=== PATIENT | female | born 1940 | race Caucasian/White ===

== ENCOUNTER 2017-07-12 20:06 | Inpatient (IN) | payer OTHER ==
[~2017-07-12] VITALS: Ht 162.6 cm; Wt 95.3 kg
--- NOTE | 2017-07-12 21:41 | ED GI/GU/ABDOMINAL COMPLAINT ---
History of Present Illness General Chief Complaint: General Adult Stated Complaint: CYST ON COLON Source: patient Exam Limitations: no limitations Vital Signs & Intake/Output Vital Signs & Intake/Output Vital Signs Date Time Temp Pulse Resp B/P B/P Pulse O2 O2 Flow FiO2 Mean Ox Delivery Rate 07/12 2245 97.7 78 18 121/67 97 Room Air 07/129 97.1 77 18 115/68 95 Room Air ED Intake and Output 07/13 0000 07/12 1200 Intake Total 0 Output Total Balance 0 Intake, Oral 0 Patient 210 lb Weight Weight Reported by Patient Measurement Method Allergies Coded Allergies: erythromycin base (GI UPSET 07/12/17) Triage Note: PT SENT TO ED BY PCP S/P SIGMOID ABCESS BEING FOUND ON CT. PT HAD PAIN IN LOW ABD FOR 2 WEEKS, "SAW PCP TWICE FOR IT" +NAUSEA/DIARRHEA. DENIES VOMITTING. AFEBRILE IN TRIAGE. DR JACOBSON CALLED AND ANTICIPATES SURGICAL/INTERVENTIONAL RADIOLOGY CONSULT. [facility] OF [facility]ERTIC Triage Nurses Notes Reviewed? yes ? N Is pt currently ? No Duration: week(s): (2), changing over time, continues in ED, intermittent Timing: remote history Location: generalized abdomen Prior Abdominal Problems: similar symptoms HPI: 77-year-old female with type II diabetes and hypertension presented to the emergency department reporting 2 weeks of abdominal pain. She had presented to her primary care provider twice over the last 2 weeks and at one point she was diagnosed with UTI and given Macrobid. She had then returned to the office and was then prescribed Cipro. Patient has history of diverticulitis. She has had diarrhea and abdominal pain, with minimal nausea and without vomiting. She was told this evening by her primary care provider via telephone that she needed to come to the emergency department because of acute diverticulitis. She has a history of uterine cancer status post hysterectomy. (Odessa Beltrán) Past History Travel History Traveled to [place] past 21 day No Medical History Any Pertinent Medical History? see below for history Neurological: NONE EENT: NONE Cardiovascular: hypertension, hyperlipidemia Respiratory: COPD Gastrointestinal: diverticulitis Endocrine: diabetes, hypothyroidism Cancer(s): UTERINE CANCER Surgical History Surgical History: hysterectomy Psychosocial History What is your primary language Welsh Tobacco Use: Quit >30 days ago ETOH Use: occasional use Illicit Drug Use: denies illicit drug use Family History Hx Contributory? No ([place] Beltrán) Review of Systems Review of Systems Constitutional: Reports: no symptoms. EENTM: Reports: no symptoms. Respiratory: Reports: no symptoms. Cardiovascular: Reports: no symptoms. GI: Reports: see HPI. Genitourinary: Reports: no symptoms. Musculoskeletal: Reports: no symptoms. Skin: Reports: no symptoms. Neurological/Psychological: Reports: no symptoms. Hematologic/Endocrine: Reports: no symptoms. Immunologic/Allergic: Reports: no symptoms. All Other Systems: Reviewed and Negative ([place] Beltrán) Physical Exam Physical Exam General Appearance: well developed/nourished, no apparent distress, alert, awake , comfortable Head: atraumatic, normal appearance Eyes: Bilateral: normal appearance. Ears, Nose, Throat, Mouth: hearing grossly normal Neck: normal inspection, full range of motion Respiratory: normal breath sounds, chest non-tender, no respiratory distress Cardiovascular: regular rate/rhythm Gastrointestinal: normal bowel sounds, soft, distention, tenderness particularly in generalized lower abdomen Back: normal inspection, normal range of motion Extremities: normal range of motion Neurologic/Psych: no motor/sensory deficits, awake, alert, oriented x 3, normal mood/affect Skin: intact, normal color, warm/dry Core Measures ACS in differential dx? No Sepsis Present: No Sepsis Focused Exam Completed? No ([place] Beltrán) Progress Differential Diagnosis: diverticulitis Plan of Care: Orders Procedure Date/time Status PARTIAL THROMBOPLASTIN TIME 07/13 2147 Complete PROTHROMBIN TIME 07/13 2147 Complete LIPASE 07/13 2147 Complete LACTIC ACID 07/13 2147 Complete COMPREHENSIVE METABOLIC PANEL 07/13 2147 Complete CBC WITHOUT DIFFERENTIAL 07/13 2147 Complete AMYLASE 07/13 2147 Complete Laboratory Tests 07/13/17 0048: Lactic Acid Cancelled 07/12/17 2205: Anion Gap 11, Estimated GFR 54 L, BUN/Creatinine Ratio 16.0, Glucose 143 H, Lactic Acid 0.9, Calcium 8.8, Total Bilirubin 0.3, AST 21, ALT 46, Alkaline Phosphatase 70, Total Protein 6.1 L, Albumin 3.3 L, Globulin 2.8, Albumin/ Globulin Ratio 1.2, Amylase 55, Lipase 305 H, PT 12.4, INR 1.14, APTT 26, CBC w Diff NO MAN DIFF REQ, RBC 3.86 L, MCV 87.8, MCH 28.9, MCHC 32.9 L, RDW 13.8, MPV 8.3, Gran % 74.9, Lymphocytes % 17.0 L, Monocytes % 5.9, Eosinophils % 1.7, Basophils % 0.5, Absolute Granulocytes 8.9 H, Absolute Lymphocytes 2.0, Absolute Monocytes 0.7 H, Absolute Eosinophils 0.2, Absolute Basophils 0.1 77-year-old female presented to the emergency department stating that her primary care provider had ordered a CT of her abdomen and received the results today at 5 PM and told patient to come to the emergency department because of acute diverticulitis. CT of abdomen revealed 5.5 cm air-containing mass with pericolonic inflammation and acute diverticulitis complicated by intramural abscess formation. Also on the CT revealed a left lower lobe lung nodule and suggested a nonurgent CT scan of patient's chest. Patient was started on Unasyn 3 g IV and blood work was ordered. Will await results of white blood cell count and then will contact surgical team/medicine team. Discussed plan with Dr. De Los Santos. Called surgical transportation engineer spoke with Dr. Mccord who states to let the surgical PA know and also contact medicine team. Contacted Christina with surgical PA team and discussed, she is aware and will consult pt. Awaiting call from Dr. Bradshaw to admit to medical team. Handing off patient to Dr. De Los Santos. 07-12-17 9:37 pm - Patient resting comfortably. She is requesting something for nausea at this time. Ordered IV zofran. She denies any pain at this time unless her abdomen is pressed.She states mainly she just feels bloated. Diagnostic Imaging: Viewed by Me: CT Scan. Discussed w/RAD: CT Scan. Radiology Impression: PATIENT: ADAM STERLING PRESENT AGE: 77 PATIENT ACCOUNT NO: [id number] : 41 LOCATION: [facility] ORDERING PHYSICIAN: Baldemar Jacobson DO SERVICE DATE: 07/11/17- EXAM TYPE: CAT - CT ABD & PELVIS W ORAL & IV CO EXAMINATION: CT ABDOMEN AND PELVIS WITH CONTRAST CLINICAL INFORMATION: Abdominal pain. COMPARISON: None TECHNIQUE: Multidetector volumetric imaging was performed of the abdomen and pelvis following IV administration of 90 mL of Optiray 320 intravenous contrast. Sagittal and coronal reformatted images were obtained on the technologist's workstation. DLP: 649.0 mGy-cm FINDINGS: LUNG BASES: There is a 1 cm maximum dimension solid-appearing pleural-based nodule identified, only partially included within the [id number] along the posterior, medial aspect of the left lung base (image #[id number] series 3; see the ching images). A nonemergent follow-up noncontrast CT scan of the chest is recommended for further full detail evaluation. LIVER, GALLBLADDER, AND BILIARY TREE: The liver is normal in size, shape, and attenuation. No focal hepatic lesion or biliary ductal dilatation is present. The gallbladder is unremarkable with no evidence of radiopaque gallstones, gallbladder wall thickening, or obvious pericholecystic inflammatory changes. PANCREAS: Unremarkable. SPLEEN: Unremarkable. ADRENAL GLANDS: The left adrenal gland is minimally thickened. There is no adrenal mass present on either side. KIDNEYS AND URETERS: The right kidney is slightly malrotated. Otherwise both kidneys show symmetric perfusion and appear unremarkable. There is no evidence of any calculi or hydronephrosis or inflammatory changes noted on either side. BLADDER: Suboptimally distended, grossly appear unremarkable. GASTROINTESTINAL TRACT: There is a 5.4 x 4.4 cm maximum dimension air containing mass identified within the proximal sigmoid colon at the level of the midpelvis at midline and slightly extending to the left of the midline surrounded by significant pericolonic inflammatory changes and underlying colonic diverticulosis, most consistent with acute diverticulitis complicated by intramural abscess formation. There is no evidence of any extra colonic fluid collection present. There is no fistula formation present with the surrounding organs. There is no evidence of any perforation noted. Note is however made of significant inflammatory changes seen extending anteriorly to the urinary bladder and along the expected location of the uterus. No definite uterus is visualized. The patient may have hysterectomy. Please correlate clinically with surgical history. ABDOMINAL WALL: No significant hernia is appreciated. LYMPH NODES: No pathologically enlarged retroperitoneal, pelvic and/or inguinal, groin lymphadenopathy present. Specifically, no definite evidence of any sigmoid mesocolonic lymphadenopathy identified. VASCULAR: Diffuse mild atherosclerotic disease is noted within the aorta and its branches without aneurysm formation. PELVIC VISCERA: There is no free fluid and/or free air present. There is no pelvic mass present. OSSEOUS STRUCTURES: Postsurgical changes of posterior spinal fusion is noted at L5-S1 spinous process level. The hardware is intact. Multilevel degenerative spondylosis related changes are noted throughout the entire lumbosacral spine with significant facet degenerative arthritic changes at lower lumbar spine. No superimposed suspicious lytic or sclerotic abnormalities. IMPRESSION: 1. 1 cm noncalcified solid-appearing lung nodule is noted at left lower lobe of the lung, incompletely included within the field-of- view. A follow-up nonemergent CT scan of the chest is recommended for further full detail evaluation. 2. 5.4 x 4.4 cm maximum dimension air containing mass is identified within the proximal sigmoid colon at the level of the midpelvis surrounded by significant pericolonic inflammatory changes and underlying colonic diverticulosis, most consistent with acute diverticulitis complicated by intramural abscess formation. There is no evidence of any bowel obstruction, perforation or fistula formation or extracolonic abscess formation identified. Follow-up colonoscopy/direct visualization following resolution of symptoms is recommended to exclude any possibility of underlying colonic neoplasm. Note is however made of absence of any sigmoid mesenteric lymphadenopathy. 3. Minimally thickened left adrenal gland and slightly malrotated right kidney, diffuse atherosclerotic disease of the aorta and its branches and multilevel degenerative spondylosis of the lumbosacral spine and postsurgical changes of posterior spinal fusion between the spinous processes of L5 and S1. This critical result was discussed with Dr. Baldemar Jacobson M.D. at 5:03 p.m. on 07/12 and it was ascertained that the content and urgency of the report was understood at the time of direct communication. DICTATED BY: Saúl Ospina MD DATE/TIME DICTATED:07/12/171642 WOOL CARDER:PETEY DATE/TIME TRANSCRIBED:07/12/171642 CONFIDENTIAL, DO NOT COPY WITHOUT APPROPRIATE AUTHORIZATION. <Electronically signed in Other Vendor System> SIGNED BY: Saúl Ospina MD 07/12/17 1728 Initial ED EKG: none Hand-Off Endorsed To: Peyman De Los Santos MD Endorsed Time: 2327 Pending: consult (from medicine to admit) ([place] Beltrán) Departure Departure Condition: Stable Clinical Impression Primary Impression: Acute diverticulitis Referrals: Baldemar Jacobson DO (PCP/Family) Departure Forms: Customer Survey General Discharge Information ([place] Beltrán) Departure Disposition: STILL A PATIENT PA/EGG BREAKER Co-Sign Statement Statement: ED Attending supervision documentation- [x] I saw and evaluated the patient. I have also reviewed all the pertinent lab results and diagnostic results. I agree with the findings and the plan of care as documented in the PA's/EGG BREAKER's documentation. 07/13/17, 0:55...pt comfortable in ED... ct scan noted... pt to be admitted for iv abx. ... appreciate surgery input. [] I have reviewed the ED Record and agree with the PA's/EGG BREAKER's documentation. [] Additions or exceptions (if any) to the PAs/EGG BREAKER's note and plan are summarized below: [] (Magali CORDON,Peyman Jimenez)
[2017-07-12 22:14] LABS: ABSOLUTE BASOPHIL COUNT 0.1 /CUMM (0.0-0.2); ABSOLUTE EOSINOPHIL COUNT 0.2 /CUMM (0.0-0.7); ABSOLUTE GRANULOCYTE CT 8.9 /CUMM (1.4-6.5); ABSOLUTE MONOCYTE COUNT 0.7 /CUMM (0.10-0.60); BASOPHIL % 0.5 % (0.0-2.0); EOSINOPHIL % 1.7 % (0-5); GRANULOCYTE % 74.9 % (42.2-75.2); HEMATOCRIT 33.9 % (37-47); MEAN CORPUSCULAR HGB 28.9 PG (27.0-31.0); MEAN CORPUSCULAR HGB CONC 32.9 G/DL (33.0-37.0); MEAN CORPUSCULAR VOLUME 87.8 FL (81.0-99.0); MEAN PLATELET VOLUME 8.3 FL (7.4-10.4); PLATELET COUNT 316 /CUMM (130-400); RBC DISTRIBUTION WIDTH 13.8 % (11.5-14.5); RED BLOOD CELL CT 3.86 /CUMM (4.20-5.40); WHITE BLOOD CELL COUNT 11.9 /CUMM (4.8-10.8)
[2017-07-12 22:35] LABS: PT 12.4 SEC (9.4-12.5); PTT 26 SEC (25-37)
--- NOTE | 2017-07-13 00:03 | Cons- General Surgery ---
Ying Garcia 07/12/17 2358: General Information and HPI Consulting Request Date of Consult: 07/13/17 Requested By: Lexi Smart Reason for Consult: Diverticulitis Source of Information: patient Exam Limitations: no limitations History of Present Illness: Pt is a 77 year old female with a long history of several years of diverticulitis. She is managed by her PCP Dr Jacobson - does not have a GI doctor. Has been hospitalized in the past at [facility] but she can't remember the last time it was years ago. She has no records of hospitalization at this hospital. She began having symptoms about two weeks ago of abdominal pain, bloating and diarrhea. She said that she felt it was IBS. Denies any nausea or chills. She states that is was also burning with urination and her MD put her on a two day course of antibiotics which were discontinued after her urine culture came back negative. 3 days ago she saw her PCP again for continued diarrhea at which time he sent her for stool cultures. They were negative for any specific organism but did show increased white counts per the patient report at which point she was begun on cipro. Her PCP sent her to [facility] for a CT yesterday which was reported to him today as inflammation of the sigmoid with an intramural abscess which is when he called her and asked her to come to the ED for admission for IV antibiotics. She hasn't had any progression of her symptoms and remains afebrile without chills. At the time of exam she is comfortable, in very little pain, denies any nausea. Had diarrhea today, no solid BM, tolerating food. Allergies/Medications Allergies: Coded Allergies: erythromycin base (GI UPSET 07/12/17) Current Medications: Current Medications Sig/Fidelina Start time Last Medication Dose Route Stop Time Status Admin Ampicillin Sodium/ 0 .STK-MED ONE 07/13 2207 DC Sulbactam Sodium .ROUTE Ampicillin Sodium/ 3,000 MG ONCE ONE 07/12 2199 DC 07/12 Sulbactam Sodium IV 07/12 Sodium Chloride 100 ML Ondansetron HCl 0 .STK-MED ONE 07/13 2219 DC .ROUTE Ondansetron HCl 4 MG ONCE ONE 07/12 2214 DC 07/12 IV 07/12 Past History Medical History Neurological: NONE EENT: NONE Cardiovascular: hypertension, hyperlipidemia Respiratory: COPD Gastrointestinal: diverticulitis Endocrine: diabetes, hypothyroidism Cancer(s): UTERINE CANCER Surgical History Pertinent Surgical History: appendectomy, hysterectomy, right knee surgery Psychosocial History Where Do You Live? Home Who Do You Live With? self Smoking Status: Former Smoker (quit 46 years ago) ETOH Use: occasional use Illicit Drug Use: denies illicit drug use Functional Ability ADLs Independent: dressing, eating, toileting, bathing. Ambulation: cane Review of Systems Review of Systems: See HPI - diarrhea, bloating, abdominal pain for two weeks, Also complains of left knee pain and some back pain which is chronic Exam & Diagnostic Data Vital Signs and I&O Vital Signs Date Time Temp Pulse Resp B/P B/P Pulse O2 O2 Flow FiO2 Mean Ox Delivery Rate 07/12 2245 97.7 78 18 121/67 97 Room Air 07/129 97.1 77 18 115/68 95 Room Air Intake & Output 07/13 0800 07/13 0000 07/12 1600 07/12 0800 07/12 0000 07/11 1600 Intake Total 0 Output Total Balance 0 Intake, Oral 0 Patient 210 lb Weight Weight Reported by Patient Measurement Method Physical Exam: afebrile, vss General: alert and oriented times three Chest: clear anteriorly bilaterally, RRR Abd: soft, nondistended, good bs, tender only to very deep palpation and the lower quadrants L>R, otherwise nontender Ext: warm, no edema, no calf tenderness Assessment/Plan Assessment/Plan 77yo female with history of diverticulitis who has not had a flare up in years presents with a two week history of symptoms and a CT positive for proximal sigmoid diverticulitis with an intramural abscess Discussed with Dr Jacobo Patient should not require surgical intervention as it is an intramural abscess Recommend antibiotics and GI consult for follow up once resolved Will follow Consult Acknowledgment - Thank you for your consult request. Keith Jacobo DO 07/14/17 5897: General Information and HPI Allergies/Medications Home Med List: Fluticasone/Salmeterol (Advair 250-50 Diskus) 250 MCG-50 MCG/DOSE BLST.W.DEV 1 PUF INH BID ASTHMA (Reported) Levothyroxine Sodium 112 MCG TABLET 1 TAB PO DAILY HYPOTHYROIDISM (Reported) Lisinopril/Hydrochlorothiazide (Lisinopril-Hctz 20-25 MG Tab) 20 MG-25 MG TABLET 1 TAB PO DAILY HTN (Reported) Metformin HCl (Metformin HCl ER) 500 MG TAB.ER.24H 1 TAB PO BID DIABETES ( Reported) Simvastatin (Simvastatin*) 40 MG TABLET 1 TAB PO QPM HYPERLIPIDEMIA (Reported ) Sitagliptin Phosphate (Januvia) 100 MG TABLET 1 TAB PO DAILY DIABETES ( Reported) Assessment/Plan Consult Acknowledgment - Thank you for your consult request. Attending MD Review Statement Attending Statement Attending MD Statement: examined this patient, discuss w/resident/PA/SIDE PANEL HANGER, agreed w/resident/PA/SIDE PANEL HANGER, reviewed EMR data (avail), reviewed images Attending Assessment/Plan: Patient seen and examined, agree with above. Abdominal pain for weeks. CT scan done as outpatient showed sigmoid diverticulitis with an intramural abscess. AVSS. Abd-soft, mild left sided discomfort. Labs ok. No acute surgical intervention at this time. No need for IR drainage of the abscess. IV Abx. C- scope as per GI. Patient has had prior episodes of diverticulitis, last one years ago and may need an eventual resection.
--- NOTE | 2017-07-13 00:19 | History & Physical ---
[facility] 07/13/17 0017: General Information and HPI MD Statement: I have seen and personally examined DAAM STERLING and documented this H&P. The patient is a 77 year old F who presented with a patient stated chief complaint of [AB PAIN/FEVER]. Source of Information: patient, old records Exam Limitations: no limitations History of Present Illness: Ms. Sterling is a 77yo F w/ PMH of Hypertension, hyperlipidemia, COPD/asthma, VIC on nocturnal CPAP, diabetes on metformin/Januvia, hypothyroidism, spinal stenosis, s/p hysterectomy 2/2 uterine CA, s/p sppendectomy, s/p right knee surgery, had a long history of diverticulitis, however without any ongoing GI specialist, but only her PCP Dr. Jacobson, without any [facility] hospitalization in the past, presented to ab pain/bloating/diarrhea x 2 weeks, however denied any fever/chills/N/V. Patient also endorsed urinary burning recently that she had 2 days of antibiotics by PCP but discontinued after urina Cx showed negative. Patient stool culture 3 days ago was negative but showed increased WBC, thus PCP advised her to a CT scan at [facility], and was found to have "acute diverticulitis complicated by intramural abscess formation." PCP then sent the patient to ER for further evaluation. During our clinical interaction, patient denied recent travel/sick contacts, fever/lightheadedness/diaphoresis/night sweat/weight change/cough/SOB/Chest Pain /Palpitation/Abdominal pain/bowel movement or urinary abnormality, or other skin /musculoskeletal/neurological/mood disorders, or dietary/appetite change. -Smoking: quitted >40yrs ago -Alcohol: occassional -Rec Drugs: denied Allergies/Medications Allergies: Coded Allergies: erythromycin base (GI UPSET 07/12/17) Home Med list Fluticasone/Salmeterol (Advair 250-50 Diskus) 250 MCG-50 MCG/DOSE BLST.W.DEV 1 PUF INH BID ASTHMA (Reported) Levothyroxine Sodium 112 MCG TABLET 1 TAB PO DAILY HYPOTHYROIDISM (Reported) Lisinopril/Hydrochlorothiazide (Lisinopril-Hctz 20-25 MG Tab) 20 MG-25 MG TABLET 1 TAB PO DAILY HTN (Reported) Metformin HCl (Metformin HCl ER) 500 MG TAB.ER.24H 1 TAB PO BID DIABETES ( Reported) Simvastatin (Simvastatin*) 40 MG TABLET 1 TAB PO QPM HYPERLIPIDEMIA (Reported ) Sitagliptin Phosphate (Januvia) 100 MG TABLET 1 TAB PO DAILY DIABETES ( Reported) Past History Travel History Traveled to [place] past 21 day No Medical History Neurological: NONE EENT: NONE Cardiovascular: hypertension, hyperlipidemia Respiratory: COPD, obstructive sleep apnea Gastrointestinal: diverticulitis Musculoskeletal: spinal stenosis Endocrine: diabetes, hypothyroidism Cancer(s): UTERINE CANCER s/p hysterectomy/radiation Surgical History Surgical History: appendectomy, hysterectomy, right knee surgery Past Family/Social History Family History Relations & Conditions if any MOTHER Relation not specified for: FH: diabetes mellitus Psychosocial History Where do you live? Home Who Do You Live With? self Smoking Status: Former Smoker (quit 46 years ago) ETOH Use: occasional use Illicit Drug Use: denies illicit drug use Functional Ability ADLs Independent: dressing, eating, toileting, bathing. Ambulation: cane IADLs Independent: shopping, housework, finances, food prep, telephone, transportation , medication admin. Review of Systems Review of Systems Constitutional: Reports: see HPI. Exam & Diagnostic Data Last 24 Hrs of Vital Signs/I&O Vital Signs Date Time Temp Pulse Resp B/P B/P Pulse O2 O2 Flow FiO2 Mean Ox Delivery Rate 07/12 2245 97.7 78 18 121/67 97 Room Air 07/12 2049 97.1 77 18 115/68 95 Room Air Intake & Output 07/13 0800 07/13 0000 07/12 1600 Intake Total 0 Output Total Balance 0 Intake, Oral 0 Patient 95.254 kg Weight Weight Reported by Patient Measurement Method Physical Exam General Appearance Alert, Oriented X3, Cooperative, No Acute Distress Skin No Rashes, No Breakdown, No Significant Lesion Skin Temp/Moisture Exam: Warm/Dry Sepsis Skin Exam (color): Normal for Ethnicity HEENT Atraumatic, PERRLA Neck Supple, No JVD Cardiovascular Regular Rate Lungs Clear to Auscultation, Normal Air Movement Abdomen Normal Bowel Sounds, Soft, mostly lower ab tenderness on palpation Neurological Normal Speech, Strength at 5/5 X4 Ext, Normal Tone, Sensation Intact Extremities No Edema, Normal Pulses, No Tenderness/Swelling Last 24 Hrs of Labs/[place]: Laboratory Tests 07/12/17 2205: Anion Gap 11, Estimated GFR 54 L, BUN/Creatinine Ratio 16.0, Glucose 143 H, Lactic Acid 0.9, Calcium 8.8, Total Bilirubin 0.3, AST 21, ALT 46, Alkaline Phosphatase 70, Total Protein 6.1 L, Albumin 3.3 L, Globulin 2.8, Albumin/ Globulin Ratio 1.2, Amylase 55, Lipase 305 H, PT 12.4, INR 1.14, APTT 26, CBC w Diff NO MAN DIFF REQ, RBC 3.86 L, MCV 87.8, MCH 28.9, MCHC 32.9 L, RDW 13.8, MPV 8.3, Gran % 74.9, Lymphocytes % 17.0 L, Monocytes % 5.9, Eosinophils % 1.7, Basophils % 0.5, Absolute Granulocytes 8.9 H, Absolute Lymphocytes 2.0, Absolute Monocytes 0.7 H, Absolute Eosinophils 0.2, Absolute Basophils 0.1 Assessment/Plan Assessment: On admission, Vitals: stable afebrile, BP 121/67, 97% RA -CBC: mild leukocytosis 11.9, H/H 11.2/33.9 (slightly decreased from baseline of 12.8 in ). -BMP: Hyponatremia 132, K 3.7, Cr 1.0, Glucose 143, LFTs WNL, -Ab CT: 1. 1 cm noncalcified solid-appearing lung nodule is noted at left lower lobe of the lung, incompletely included within the [id number]. 2. 5.4 x 4.4 cm maximum dimension air containing mass is identified within the proximal sigmoid colon at the level of the midpelvis surrounded by significant pericolonic inflammatory changes and underlying colonic diverticulosis, most consistent with acute diverticulitis complicated by intramural abscess formation. There is no evidence of any bowel obstruction, perforation or fistula formation or extracolonic abscess formation identified. 3. Minimally thickened left adrenal gland and slightly malrotated right kidney, diffuse atherosclerotic disease of the aorta and its branches and multilevel degenerative spondylosis of the lumbosacral spine and postsurgical changes of posterior spinal fusion between the spinous processes of L5 and S1. -Interventions in ER: Unasyn x 1, Zofran x 1 Problem list/Assessment/Hospital Course: #Acute diverticulitis w/ intramural abscess formation #Lung nodules #PMH of Hypertension, hyperlipidemia, COPD, VIC w/ Nocturnal CPAP, diabetes, hypothyroidism, - Admit to general medicine, vitals per protocol, currently hemodynamically stable - Novolog SS/AccuChek, serial Ab exams, - Surgery consult appreciated, no intervention at this point, will continue monitor - Would start Ceftriaxone + flagyl and continue monitoring for any fever/ hypotension/deterioration. - PPI IV protonix BID - Pending cultures - Pending GI consult for further evaluation, keep NPO for now - Continue all home meds, except hold lisinopril-HCTZ - continue CPAP - Outpatient f/u of lung nodules - Pain per pathway DVT prophylaxis Pharm PPX + ALPS NPO Full Code As Ranked By This Provider Problem List: 1. Acute diverticulitis Core Measures/Misc (11/02) Acute Coronary Syndrome ACS Diagnosis: No Congestive Heart Failure Congestive Heart Failure Diagnosis No Cerebrovascular Accident CVA/TIA Diagnosis: No VTE (View Protocol) VTE Risk Factors Age>40 No Mechanical VTE Prophylaxis d/t N/A MechProphylax Ordered No VTE Pharm Prophylaxis d/t NA PharmProphylax ordered Sepsis (View protocol) Sepsis Present: No If YES complete Sepsis Event Note If YES complete Sepsis Event Note Luz Holt 07/13/17 0046: Core Measures/Misc (11/02) Sepsis (View protocol) If YES complete Sepsis Event Note If YES complete Sepsis Event Note Resident Review Statement Resident Statement: examined this patient, discussed with international tax manager, agreed with international tax manager Other Findings: Mr Sterling is a 77-year-old woman with a PMHx of type 2 diabetes, hypertension, previous history of diverticulitis, irritable bowel syndrome, COPD/asthma, hypothyroidism, HLD, VIC on CPAP, uterine cancer status post radiation, came to the hospital for chief concern of worsening lower abdominal discomfort 2 weeks. She was recently seen by primary care provider and was prescribed antibiotics when she also had "vaginal pain", hematuria, and dysurea that started around the same time, and was treated w/ nitrofurantoin briefly with no resolution of symptoms. She had a several episodes of non bloody diarrhea, lower abdominal pain w/ no radiation or association w/ food intake. No charly, brpbr. She didnt have any vomiting, but had nausea. She was then evaluated by a CT scan abdoemen by her PCP which revealed s/o diverticulits and was recommened to go to the ER. Last colonoscopy was done approximately 10 years ago. At the time of admission-temperature 97.1, pulse rate 77, respiration 18, blood pressure 115/68--121/67, pulse ox 95% on room air. General Exam: AAOx3, No acute distress, Skin: No rashes, no breakdown; HEENT: PERRLA, EOMI;Neck: Supple, No JVD; No cervical lymphadenopathy; CVS: Reg Rate, Normal S1,S2, No MGR;Resp: Normal air entry, no ronchi/rales;Abdomen: Soft, tenderness in the right and left lower quadrant, and mild tenderness in the RUQ, no guarding or rigidity, Normal Bowel Sounds; Neuro: Normal Speech, Strength 5/5 b/l x 4 extremities, Sensation intact, CN III-XII NL, Reflexes 2+;Extremities: No cyanosis, no pedal edema. Pertinent lab findings: WBC 11.9, hemoglobin 11.2, MCV 87.8. Platelet count 316. Sodium 132(mild hyponatremia), potassium 3.7, chloride 94, anion gap 11; Renal function-BUN 16, creatinine 1.0. Glucose 143. Lactic acid 0.9. INR 1.14. CT scan abdomen done on 07/11/2017 revealed: 1. 1 cm noncalcified solid-appearing lung nodule is noted at left lower lobe of the lung, incompletely included within the [id number]. A follow-up nonemergent CT scan of the chest is recommended for further full detail evaluation. 2. 5.4 x 4.4 cm maximum dimension air containing mass is identified within the proximal sigmoid colon at the level of the midpelvis surrounded by significant pericolonic inflammatory changes and underlying colonic diverticulosis, most consistent with acute diverticulitis complicated by intramural abscess formation. There is no evidence of any bowel obstruction, perforation or fistula formation or extracolonic abscess formation identified. Follow-up colonoscopy/ direct visualization following resolution of symptoms is recommended to exclude any possibility of underlying colonic neoplasm. Note is however made of absence of any sigmoid mesenteric lymphadenopathy. 3. Minimally thickened left adrenal gland and slightly malrotated right kidney, diffuse atherosclerotic disease of the aorta and its branches and multilevel degenerative spondylosis of the lumbosacral spine and postsurgical changes of posterior spinal fusion between the spinous processes of L5 and S1. Problem list 1. Acute diverticulitis w/ intramural abscess 2. Type 2 Diabetes 3. History of hypothyroidism 4. History of lung nodule 5. History of COPD 6. Hypertension Etiology in her case of abdominal discomfort, with radiological findings of acute diverticulitis complicating into a diverticular abscess is likely from her previous history of diverticulitis and irritable bowel syndrome. Since the patient had these symptoms for a while, and was partially treated with antibiotics, likely developed into an abscess that should be drained if it worsens. In regards to her other medical problems such as diabetes, COPD should be monitored while she is in the hospital. Plan: #1 diverticular abscess-likely is from acute diverticulitis, complicating into an abscess. This needs to be drained, if worsens given the nature of the abscess. Surgical consult has been obtained. Blood cultures drawn. She is nothing by mouth for now, pending GI/surgical evaluation. She was given Unasyn while she was in the ER, and could be continued on ceftriaxone plus Flagyl at this time. Monitor vitals closely. If she has any signs of worsening abdominal pain, examination suggestive of peritonitis certainly needs to be alerted immediately for surgical exploration. #2 history of type 2 diabetes-hold oral hypoglycemic drugs at this time. Start the patient on insulin sliding scale. Monitor blood glucose closely. #3 hypertension-continue to hold antihypertensives at this time. Intravenous fluids at 150 mL an hour. Housekeeping checklist #1 DVT prophylaxis-subcutaneous heparin #2 GI prophylaxis-Protonix when necessary #3 CODE STATUS-DNR/DNI #4 medication rec-done #5 consults-surgery, gastroenterology. Augustine CORDON, [facility] 07/13/17 0524: Core Measures/Misc (11/02) Sepsis (View protocol) If YES complete Sepsis Event Note If YES complete Sepsis Event Note Attending MD Review Statement Attending Statement Attending MD Statement: examined this patient, discuss w/resident/PA/JACK MACHINE OPERATOR, agreed w/resident/PA/JACK MACHINE OPERATOR, reviewed images, amended to note Attending Assessment/Plan: 77 yo F with h/o T2DM with neuropathy, HTN, IBS, diverticulosis, COPD, VIC on CPAP, hypothyroidism, is sent in by PCP for CT findings of diverticulitis. Patient reports 2 week h/o ongoing bilateral lower abdominal discomfort, bloating, with nausea and intermittent watery diarrhea. She denies dysuria or urinary frequency, but reported pain in the vaginal area when urinating so her PCP treated her on nitrofurantoin for a UTI starting June 29, but this resulted in profuse diarrhea and it was discontinued. Her urine culture was negative. Stool culture returned negative as well. She continued to have nonbloody watery diarrhea with abdominal discomfort. Her WBC was elevated at 15, so he prescribed ciprofloxacin on July 10 and sent her for a CT scan. CT was reported as diverticulitis with abscess and she was asked to come to ER. Last colonoscopy was over 10 yrs ago diverticulosis, hemorrhoids. She used to follow with Dr. Antonio (GI). Vitals stable. Exam: AAO, in no distress, Mucosa dry, Neck supple, Chest b/l clear, Abd soft, distended, bilateral lower quadrant tenderness, BS+. LE no edema. Labs: WBC 11.9, normocytic anemia, Plt 316, Na 132, creat 1.0, glucose 143, lactic acid 0.9, trop neg. UA neg. CT abd/pelvis (07/11): 5.4 x 4.4 cm air containing mass in proximal sigmoid colon acute diverticulitis c/b intramural abscess formation. No bowel obstruction or perforation or fistula formation or extracolonic abscess. 1 cm noncalcified lung nodule. Assessment and plan: 1. Acute sigmoid diverticulitis with intramural abscess 2. History of IBS and diverticulosis 3. Lung nodule 4. Essential hypertension 5. Type 2 diabetes with neuropathy 6. VIC on CPAP - Admit to General medicine - Panculture - IV ceftriaxone and flagyl - Hemodynamically stable - Surgery consult no surgical intervention - GI consult for follow up colonoscopy as outpatient - IV fluids - NPO status, antiemetics PRN - Serial abdomen exams - Pain management with IV Tylenol or tramadol. Avoid NSAIDS and opiates. - Diabetes management accucheks, insulin NPO SS, check HbA1c, hold metformin and januvia - Hold lisinopril-hctz - Obtain baseline EKG - Provide nocturinal CPAP - Outpatient follow up of lung nodule - GI ppx IV protonix DVT ppx Hep SC. DNR/I.
[2017-07-13] MEDS ORDERED: LEVOTHYROXINE112 MCG PO (01:51)
[2017-07-13] MEDS ORDERED: ADVAIR 250-501 EACH INH (01:51)
[2017-07-13] MEDS ORDERED: LISINOPRIL-HCT1 EAC1 PO (01:51)
[2017-07-13] MEDS ORDERED: METFORMIN HCL500 M4 PO (01:52)
[2017-07-13] MEDS ORDERED: SIMVASTATIN40 M1 PO (01:52)
[2017-07-13] MEDS ORDERED: JANUVIA100 M1 PO (01:52)
[2017-07-13 05:02] VITALS: BP 122/66
--- NOTE | 2017-07-13 05:24 | Admission Certification ---
Admission Certification Certification Statement - As attending physician, I certify that at the time of - admission, based on clinical presentation, severity of - symptoms, need for further diagnostic testing and - therapeutic interventions, and risk of adverse outcomes - without in-hospital treatment, in my clinical assessment, - this patient requires an acute hospital stay for a minimum - of two nights or longer. I have also considered psychsocial - factors such as support system, advanced age, financial - issues, cognitive issues, and failed out-patient treatments, - past re-admission history, safety of patient, and lack of - compliance as applicable. Specific rationale supporting this admission is: Acute diverticulitis with intra-mural abscess.
--- NOTE | 2017-07-13 10:38 | PN- General Surgery ---
Subjective Subjective: Patient in bed, daughter present complaints of generalized abdominal soreness unchanged from yesterday no nausea or vomiting quiet abdomen no gas Review of Systems Constitutional: Denies: chills, fever, weakness. Cardiovascular: Denies: chest pain, edema, palpitations. Respiratory: Denies: cough, short of breath. Gastrointestinal: Reports: abdominal pain, bloating, distention. Denies: constipation, diarrhea, nausea, vomiting. Objective Vital Signs and I&Os Vital Signs Date Time Temp Pulse Resp B/P B/P Pulse O2 O2 Flow FiO2 Mean Ox Delivery Rate 07/13 1020 Room Air 07/13 0502 98.3 55 18 122/66 94 07/13 0205 68 18 128/72 99 Room Air 07/12 2245 97.7 78 18 121/67 97 Room Air 07/12 2049 97.1 77 18 115/68 95 Room Air Intake & Output 07/13 1600 07/13 0800 07/13 0000 07/12 1600 07/12 0800 07/12 0000 Intake Total 240 0 Output Total Balance 240 0 Intake, Oral 240 0 Patient 210 lb 210 lb Weight Weight Reported by Patient Reported by Patient Measurement Method Physical Exam: lying in bed without complaints VSS, afebrile chest- CTA, symmetric Heart- RRR without MRG Abdom - rounded- mild distention TTP bilateral lower quadrants, no guarding or rebound Admission Lab Results I reviewed the following labs: Laboratory Tests 07/13 07/13 0134 0048 Chemistry Lactic Acid Cancelled Urines Urinalysis MOD H Urine Color (YEL,AMB,STR) YEL Urine Clarity (CLEAR) CLEAR Urine pH (5.0 - 8.0) 6.0 Ur Specific [place] (1.001 - 1.035) 1.015 Urine Protein (NEG,<30 MG/DL) NEG Urine Ketones (NEG) NEG Urine Nitrite (NEG) NEG Urine Bilirubin (NEG) NEG Urine Urobilinogen (0.1 - 1.0 EU/dl) 0.2 Ur Leukocyte Esterase (NEG) SMALL H Ur Microscopic SEDIMENT EXAMINED Urine RBC (0 - 5 /HPF) 1-3 Urine WBC (0 - 2 /HPF) 5-10 H Ur Epithelial Cells (NONE,FEW) FEW Hyaline Casts (0/LPF) 1-3 H Granular Casts (NONE /LPF) 1-3 H Urine Hemoglobin (NEG) NEG Urine Glucose (N MG/DL) NEG 07/12 2204 Chemistry Sodium (137 - 145 mmol/L) 132 L Potassium (3.5 - 5.1 mmol/L) 3.7 Chloride (98 - 107 mmol/L) 94 L Carbon Dioxide (22 - 30 mmol/L) 27 Anion Gap (5 - 16) 11 BUN (7 - 17 mg/dL) 16 Creatinine (0.5 - 1.0 mg/dL) 1.0 Estimated GFR (>60 ml/min) 54 L BUN/Creatinine Ratio (7 - 25 %) 16.0 Glucose (65 - 99 mg/dL) 143 H Hemoglobin A1c (4.2 - 5.8 %) Pending Lactic Acid (0.7 - 2.1 mmol/L) 0.9 Calcium (8.4 - 10.2 mg/dL) 8.8 Total Bilirubin (0.2 - 1.3 mg/dL) 0.3 AST (14 - 36 U/L) 21 ALT (9 - 52 U/L) 46 Alkaline Phosphatase (<127 U/L) 70 Troponin I (< 0.11 ng/ml) < 0.01 Total Protein (6.3 - 8.2 g/dL) 6.1 L Albumin (3.5 - 5.0 g/dL) 3.3 L Globulin (1.9 - 4.2 gm/dL) 2.8 Albumin/Globulin Ratio (1.1 - 2.2 %) 1.2 Amylase (30 - 110 U/L) 55 Lipase (23 - 300 U/L) 305 H Coagulation PT (9.4 - 12.5 SEC) 12.4 INR (0.90 - 1.19) 1.14 APTT (25 - 37 SEC) 26 Hematology CBC w Diff NO MAN DIFF REQ WBC (4.8 - 10.8 /CUMM) 11.9 H RBC (4.20 - 5.40 /CUMM) 3.86 L Hgb (12.0 - 16.0 G/DL) 11.2 L Hct (37 - 47 %) 33.9 L MCV (81.0 - 99.0 FL) 87.8 MCH (27.0 - 31.0 PG) 28.9 MCHC (33.0 - 37.0 G/DL) 32.9 L RDW (11.5 - 14.5 %) 13.8 Plt Count (130 - 400 /CUMM) 316 MPV (7.4 - 10.4 FL) 8.3 Gran % (42.2 - 75.2 %) 74.9 Lymphocytes % (20.5 - 51.1 %) 17.0 L Monocytes % (1.7 - 9.3 %) 5.9 Eosinophils % (0 - 5 %) 1.7 Basophils % (0.0 - 2.0 %) 0.5 Absolute Granulocytes (1.4 - 6.5 /CUMM) 8.9 H Absolute Lymphocytes (1.2 - 3.4 /CUMM) 2.0 Absolute Monocytes (0.10 - 0.60 /CUMM) 0.7 H Absolute Eosinophils (0.0 - 0.7 /CUMM) 0.2 Absolute Basophils (0.0 - 0.2 /CUMM) 0.1 PE Assessment/Plan Assessment/Plan HD1 sigmoid diverticulitis rocephin/flagyl bowel rest encourage -OOB and ambulation DVT proph recommend HSQ and ALPS ice chips and PO meds Core Measures Venous Thromboembolism VTE Risk Factors Age>40 No Mechanical VTE Prophylaxis d/t N/A MechProphylax Ordered No VTE Pharm Prophylaxis d/t NA PharmProphylax ordered
--- NOTE | 2017-07-13 14:55 | Cons- Gastroenterology ---
General Information and HPI Consulting Request Date of Consult: 07/13/17 Requested By: Augustine CORDON,Buck Reason for Consult: 1. Acute diverticulitis with abscess 2. Abnormal CT scan abdomen and pelvis 3. Lower abdominal pain Source of Information: patient, electronic medical record Exam Limitations: no limitations History of Present Illness: Ms. Prakash is a 77-year-old female with a past medical history of acute diverticulitis which has been accompanied by severe abdominal pain and fever and shaking chills. She has been having increasing lower abdominal pain over the past 2 weeks and has seen her PCP for evaluation. She had no fever or shaking chills, no hematochezia or change in bowel habit or stool caliber. She had had no nauisea, or vomiting. He ordered a CT Scan of the abdomen and pelvis which showed acute diverticulitis with abscess formation and advised her to come to the hospital. The results are as follows. FINDINGS: LUNG BASES: There is a 1 cm maximum dimension solid-appearing pleural-based nodule identified, only partially included within the [id number] along the posterior, medial aspect of the left lung base (image #[id number] series 3; see the ching images). A nonemergent follow-up noncontrast CT scan of the chest is recommended for further full detail evaluation. LIVER, GALLBLADDER, AND BILIARY TREE: The liver is normal in size, shape, and attenuation. No focal hepatic lesion or biliary ductal dilatation is present. The gallbladder is unremarkable with no evidence of radiopaque gallstones, gallbladder wall thickening, or obvious pericholecystic inflammatory changes. PANCREAS: Unremarkable. SPLEEN: Unremarkable. ADRENAL GLANDS: The left adrenal gland is minimally thickened. There is no adrenal mass present on either side. KIDNEYS AND URETERS: The right kidney is slightly malrotated. Otherwise both kidneys show symmetric perfusion and appear unremarkable. There is no evidence of any calculi or hydronephrosis or inflammatory changes noted on either side. BLADDER: Suboptimally distended, grossly appear unremarkable. GASTROINTESTINAL TRACT: There is a 5.4 x 4.4 cm maximum dimension air containing mass identified within the proximal sigmoid colon at the level of the midpelvis at midline and slightly extending to the left of the midline surrounded by significant pericolonic inflammatory changes and underlying colonic diverticulosis, most consistent with acute diverticulitis complicated by intramural abscess formation. There is no evidence of any extra colonic fluid collection present. There is no fistula formation present with the surrounding organs. There is no evidence of any perforation noted. Note is however made of significant inflammatory changes seen extending anteriorly to the urinary bladder and along the expected location of the uterus. No definite uterus is visualized. The patient may have hysterectomy. Please correlate clinically with surgical history. ABDOMINAL WALL: No significant hernia is appreciated. LYMPH NODES: No pathologically enlarged retroperitoneal, pelvic and/or inguinal, groin lymphadenopathy present. Specifically, no definite evidence of any sigmoid mesocolonic lymphadenopathy identified. VASCULAR: Diffuse mild atherosclerotic disease is noted within the aorta and its branches without aneurysm formation. PELVIC VISCERA: There is no free fluid and/or free air present. There is no pelvic mass present. OSSEOUS STRUCTURES: Postsurgical changes of posterior spinal fusion is noted at L5-S1 spinous process level. The hardware is intact. Multilevel degenerative spondylosis related changes are noted throughout the entire lumbosacral spine with significant facet degenerative arthritic changes at lower lumbar spine. No superimposed suspicious lytic or sclerotic abnormalities. IMPRESSION: 1. 1 cm noncalcified solid-appearing lung nodule is noted at left lower lobe of the lung, incompletely included within the [id number]. A follow-up nonemergent CT scan of the chest is recommended for further full detail evaluation. 2. 5.4 x 4.4 cm maximum dimension air containing mass is identified within the proximal sigmoid colon at the level of the midpelvis surrounded by significant pericolonic inflammatory changes and underlying colonic diverticulosis, most consistent with acute diverticulitis complicated by intramural abscess formation. There is no evidence of any bowel obstruction, perforation or fistula formation or extracolonic abscess formation identified. Follow-up colonoscopy/direct visualization following resolution of symptoms is recommended to exclude any possibility of underlying colonic neoplasm. Note is however made of absence of any sigmoid mesenteric lymphadenopathy. 3. Minimally thickened left adrenal gland and slightly malrotated right kidney, diffuse atherosclerotic disease of the aorta and its branches and multilevel degenerative spondylosis of the lumbosacral spine and postsurgical changes of posterior spinal fusion between the spinous processes of L5 and S1. She has a personal history of uterine cancer, Stage one for whichshe received radiation therapy only. She had a hysterectomy only a few years ago. She has no family history of breast, ovarian, uterine, urinary ladder, or colon cancer. She has not had a colonoscopy for over 10 years. She has a personal history of IBS and generally has alternating constipation and diarrhea. Allergies/Medications Allergies: Coded Allergies: erythromycin base (GI UPSET 07/12/17) Home Med List: Fluticasone/Salmeterol (Advair 250-50 Diskus) 250 MCG-50 MCG/DOSE BLST.W.DEV 1 PUF INH BID ASTHMA (Reported) Levothyroxine Sodium 112 MCG TABLET 1 TAB PO DAILY HYPOTHYROIDISM (Reported) Lisinopril/Hydrochlorothiazide (Lisinopril-Hctz 20-25 MG Tab) 20 MG-25 MG TABLET 1 TAB PO DAILY HTN (Reported) Metformin HCl (Metformin HCl ER) 500 MG TAB.ER.24H 1 TAB PO BID DIABETES ( Reported) Simvastatin (Simvastatin*) 40 MG TABLET 1 TAB PO QPM HYPERLIPIDEMIA (Reported ) Sitagliptin Phosphate (Januvia) 100 MG TABLET 1 TAB PO DAILY DIABETES ( Reported) Current Medications: Current Medications Sig/Fidelina Start time Last Medication Dose Route Stop Time Status Admin Acetaminophen 1,000 MG BID PRN 07/13 0615 AC N/A 1 UNIT IV Albuterol Sulfate 2 PUF Q4P PRN 07/13 1030 AC INH Ampicillin Sodium/ 0 .STK-MED ONE 07/128 DC Sulbactam Sodium .ROUTE Ampicillin Sodium/ 3,000 MG ONCE ONE 07/12 2200 DC 07/12 Sulbactam Sodium IV 07/12 2228 2209 Sodium Chloride 100 ML Atorvastatin Calcium 20 MG 1700 07/13 1700 AC PO Budesonide/ 2 PUF BID 07/13 0900 AC 07/13 Formoterol Fumarate INH 1020 Ceftriaxone Sodium 1,000 MG 0600 07/13 0600 AC 07/13 IV 0704 Heparin Sodium 5,000 UNIT Q8 07/13 0600 AC 07/13 (Porcine) SC 1431 Insulin Human Regular 0 Q6 07/13 0600 AC SC Levothyroxine Sodium 0.112 MG DAILY AC 07/13 0700 AC 07/13 PO 0706 Metronidazole 500 MG Q8 07/13 0600 AC 07/13 N/A 1 UNIT IV 1433 Ondansetron HCl 0 .STK-MED ONE 07/12 2220 DC .ROUTE Ondansetron HCl 4 MG ONCE ONE 07/12 2215 DC 07/12 IV 07/12 2216 2217 Sodium Chloride 1,000 ML Q13H 07/13 0200 AC 07/13 IV 07/13 1459 0219 Tramadol HCl 50 MG Q8 PRN 07/13 0615 AC PO Past History Travel History Traveled to [place] past 21 day No Medical History Blood Transfusion Hx: No Neurological: NONE EENT: NONE Cardiovascular: hypertension, hyperlipidemia Respiratory: COPD, obstructive sleep apnea Gastrointestinal: diverticulitis Musculoskeletal: spinal stenosis Endocrine: diabetes, hypothyroidism Cancer(s): UTERINE CANCER s/p hysterectomy/radiation Surgical History Surgical History: appendectomy, hysterectomy, right knee surgery Family History Relations & Conditions If Any: MOTHER Relation not specified for: FH: diabetes mellitus Psychosocial History Where Do You Live? Home Who Do You Live With? self Smoking Status: Former Smoker (quit 46 years ago) ETOH Use: occasional use Illicit Drug Use: denies illicit drug use Functional Ability ADLs Independent: dressing, eating, toileting, bathing. Ambulation: cane IADLs Independent: shopping, housework, finances, food prep, telephone, transportation , medication admin. Review of Systems Review of Systems Constitutional: Reports: no symptoms. EENTM: Reports: no symptoms. Cardiovascular: Reports: no symptoms. Respiratory: Reports: no symptoms. GI: Reports: see HPI. Genitourinary: Reports: no symptoms. Musculoskeletal: Reports: no symptoms. Skin: Reports: no symptoms. Neurological/Psychological: Reports: no symptoms. Hematologic/Endocrine: Reports: no symptoms. Exam & Diagnostic Data Vital Signs and I&O Vital Signs Date Time Temp Pulse Resp B/P B/P Pulse O2 O2 Flow FiO2 Mean Ox Delivery Rate 07/13 1020 Room Air 07/13 0502 98.3 55 18 122/66 94 07/13 0205 68 18 128/72 99 Room Air 07/12 2245 97.7 78 18 121/67 97 Room Air 07/12 2049 97.1 77 18 115/68 95 Room Air Intake & Output 07/13 1600 07/13 0400 07/12 1600 07/12 0400 07/11 1600 07/11 0400 Intake Total 815 0 Output Total Balance 815 0 Intake, IV 575 Intake, Oral 240 0 Number 0 Bowel Movements Patient 210 lb 210 lb Weight Weight Reported by Patient Reported by Patient Measurement Method Physical Exam General Appearance: well developed/nourished, comfortable Head: atraumatic, normal appearance Eyes: Bilateral: normal appearance. Ears, Nose, Throat: hearing grossly normal Neck: normal inspection, supple, full range of motion Respiratory: normal breath sounds, chest non-tender Cardiovascular: regular rate/rhythm, Normal S1 and S2 without rub, murmur or gallop Gastrointestinal: normal bowel sounds, soft, non-tender, no organomegaly Back: normal inspection Extremities: normal inspection Neurologic/Psych: oriented x 3, normal mood/affect Cranial Nerves: cranial nerves II=XII intact Skin: intact, normal color, warm/dry Results Pertinent Lab Results: Laboratory Tests 07/13 07/13 0134 0048 Chemistry Lactic Acid Cancelled Urines Urinalysis MOD H Urine Color (YEL,AMB,STR) YEL Urine Clarity (CLEAR) CLEAR Urine pH (5.0 - 8.0) 6.0 Ur Specific [place] (1.001 - 1.035) 1.015 Urine Protein (NEG,<30 MG/DL) NEG Urine Ketones (NEG) NEG Urine Nitrite (NEG) NEG Urine Bilirubin (NEG) NEG Urine Urobilinogen (0.1 - 1.0 EU/dl) 0.2 Ur Leukocyte Esterase (NEG) SMALL H Ur Microscopic SEDIMENT EXAMINED Urine RBC (0 - 5 /HPF) 1-3 Urine WBC (0 - 2 /HPF) 5-10 H Ur Epithelial Cells (NONE,FEW) FEW Hyaline Casts (0/LPF) 1-3 H Granular Casts (NONE /LPF) 1-3 H Urine Hemoglobin (NEG) NEG Urine Glucose (N MG/DL) NEG 07/125 Chemistry Sodium (137 - 145 mmol/L) 132 L Potassium (3.5 - 5.1 mmol/L) 3.7 Chloride (98 - 107 mmol/L) 94 L Carbon Dioxide (22 - 30 mmol/L) 27 Anion Gap (5 - 16) 11 BUN (7 - 17 mg/dL) 16 Creatinine (0.5 - 1.0 mg/dL) 1.0 Estimated GFR (>60 ml/min) 54 L BUN/Creatinine Ratio (7 - 25 %) 16.0 Glucose (65 - 99 mg/dL) 143 H Hemoglobin A1c (4.2 - 5.8 %) 7.3 H Lactic Acid (0.7 - 2.1 mmol/L) 0.9 Calcium (8.4 - 10.2 mg/dL) 8.8 Total Bilirubin (0.2 - 1.3 mg/dL) 0.3 AST (14 - 36 U/L) 21 ALT (9 - 52 U/L) 46 Alkaline Phosphatase (<127 U/L) 70 Troponin I (< 0.11 ng/ml) < 0.01 Total Protein (6.3 - 8.2 g/dL) 6.1 L Albumin (3.5 - 5.0 g/dL) 3.3 L Globulin (1.9 - 4.2 gm/dL) 2.8 Albumin/Globulin Ratio (1.1 - 2.2 %) 1.2 Amylase (30 - 110 U/L) 55 Lipase (23 - 300 U/L) 305 H Coagulation PT (9.4 - 12.5 SEC) 12.4 INR (0.90 - 1.19) 1.14 APTT (25 - 37 SEC) 26 Hematology CBC w Diff NO MAN DIFF REQ WBC (4.8 - 10.8 /CUMM) 11.9 H RBC (4.20 - 5.40 /CUMM) 3.86 L Hgb (12.0 - 16.0 G/DL) 11.2 L Hct (37 - 47 %) 33.9 L MCV (81.0 - 99.0 FL) 87.8 MCH (27.0 - 31.0 PG) 28.9 MCHC (33.0 - 37.0 G/DL) 32.9 L RDW (11.5 - 14.5 %) 13.8 Plt Count (130 - 400 /CUMM) 316 MPV (7.4 - 10.4 FL) 8.3 Gran % (42.2 - 75.2 %) 74.9 Lymphocytes % (20.5 - 51.1 %) 17.0 L Monocytes % (1.7 - 9.3 %) 5.9 Eosinophils % (0 - 5 %) 1.7 Basophils % (0.0 - 2.0 %) 0.5 Absolute Granulocytes (1.4 - 6.5 /CUMM) 8.9 H Absolute Lymphocytes (1.2 - 3.4 /CUMM) 2.0 Absolute Monocytes (0.10 - 0.60 /CUMM) 0.7 H Absolute Eosinophils (0.0 - 0.7 /CUMM) 0.2 Absolute Basophils (0.0 - 0.2 /CUMM) 0.1 Assessment/Plan Assessment/Recommendations: ASSESSMENT: 1. Acute Diverticulitis, Complicated by Intramural Abscess 2. Diabetes Mellitus 3. HTN 4. Hyperlipidemia 5. Lung nodule identified incidentally on recent CT RECOMMENDATIONS: 1. IV antibiotics, would broaden coverage 2. Can give clear liquid diet 3. Would have surgical consult, although there is no indication for surgery at this time. 4. Patient will likely need at least 5 days IV antibiotics followed by at least 10-14 days oral antibiotics. Would get repeat CT Scan abdomen and pelvis prior to discontinuing IV antibiotics to assess effects on abscess. 5. CT of the Chest to further characterize lung nodule 6. Discussed with patient that she will need colonoscopy in about 8 weeks after abscess has healed to make sure that there are no intercurrent lesions responsible for the current findings. 7. I also discussed that since this is not her first episode of significant diverticulitis, I would recommend resection after colonoscopy to prevent another , possibly more serious, episode of complicated diverticulitis. All ?s answered. Consult Acknowledgment - Thank you for your consult request.
[2017-07-13 15:27] VITALS: BP 143/71
--- NOTE | 2017-07-13 17:11 | PN- Att Addend ---
Attending Addendum Attending Brief Note 77F PMH T2DM with neuropathy, HTN, IBS, diverticulosis, COPD, VIC on CPAP, hypothyroidism admitted for acute diverticulitis with an intramural abscess diagnosed by PCP and sent in for treatment. Patient has no complaints today. She has no pain and feels well. She is hungry. Stable vitals, labs reviewed. 1. Acute diverticulitis 2. Colonic intramural abscess Plan - Continue on general medicine - Discontinue Unasyn, start Ceftriaxone and Flagyl - Clear liquid diet, may advance tomorrow if tolerated - Follow surgery and GI recommendations - Tylenol PRN pain - Continue home medications - DVT PPx
[2017-07-13 22:42] VITALS: BP 141/65
[2017-07-14 06:30] VITALS: BP 149/73
--- NOTE | 2017-07-14 07:32 | PN- General Surgery ---
Subjective Subjective: No acute overnight events reported. Pt given clear liquid diet yesterday, tolerated it with no nausea or vomitting. Has passed flatus, no bm. No difficulty voiding. Denies chest pain, SOB, or any exacerbation of pre-existing copd. Objective Vital Signs and I&Os Vital Signs Date Time Temp Pulse Resp B/P B/P Pulse O2 O2 Flow FiO2 Mean Ox Delivery Rate 07/14 0630 98.2 54 20 149/73 96 Room Air 07/13 2242 97.9 57 18 141/65 94 Room Air 07/13 1527 98.5 59 18 143/71 95 Room Air 07/13 1020 Room Air Intake & Output 07/14 0807/14 0000 07/13 1600 07/13 0807/13 0000 07/12 1600 Intake Total 130 575 240 0 Output Total Balance 130 575 240 0 Intake, IV 130 575 Intake, Oral 240 0 Number 0 Bowel Movements Patient 210 lb 210 lb Weight Weight Reported by Patient Reported by Patient Measurement Method Physical Exam: General: AAOx3, no acute distress Cards: RRR, s1s2 Pulm: Non-labored respiratory effort, cta Abd: Softly distended, tender with palpation to LUQ and Bilateral LQ, +bs Extremities: Neurovascularly intact, calves soft and non-tender bilaterally Assessment/Plan Assessment/Plan 77 year old F with acute diverticulitis, intraluminal -Await repeat CT scan prior to dc iv abx and converting to po per GI recommendations. Pt still quite tender on exam this am. -Continue clear liquid diet -Continue Rocephin/Flagyl -HSQ/ALPS for dvt ppx -OOB encouraged -Surgery will continue to follow, symptoms do not appear to be worsening however , they are not resolved, would recommend continued conservative management Will discuss plan of care with Dr. Jacobo
[2017-07-14 07:53] LABS: ABSOLUTE BASOPHIL COUNT 0.1 /CUMM (0.0-0.2); ABSOLUTE EOSINOPHIL COUNT 0.2 /CUMM (0.0-0.7); ABSOLUTE GRANULOCYTE CT 4.8 /CUMM (1.4-6.5); ABSOLUTE LYMPH COUNT 1.7 /CUMM (1.2-3.4); ABSOLUTE MONOCYTE COUNT 0.4 /CUMM (0.10-0.60); BASOPHIL % 0.9 % (0.0-2.0); EOSINOPHIL % 2.4 % (0-5); GRANULOCYTE % 66.9 % (42.2-75.2); HEMATOCRIT 34.5 % (37-47); MEAN CORPUSCULAR HGB 28.6 PG (27.0-31.0); MEAN CORPUSCULAR HGB CONC 32.9 G/DL (33.0-37.0); MEAN CORPUSCULAR VOLUME 86.9 FL (81.0-99.0); MEAN PLATELET VOLUME 8.9 FL (7.4-10.4); PLATELET COUNT 331 /CUMM (130-400); RBC DISTRIBUTION WIDTH 14.1 % (11.5-14.5); RED BLOOD CELL CT 3.97 /CUMM (4.20-5.40); WHITE BLOOD CELL COUNT 7.1 /CUMM (4.8-10.8)
--- NOTE | 2017-07-14 11:42 | RADIOLOGY REPORT ---
EXAMINATION: XR KIDNEYS, URETER, BLADDER CLINICAL INDICATION: Diverticulitis COMPARISON: CT images of the abdomen from 07/11/2017 TECHNIQUE: AP view of the abdomen. FINDINGS: Linear opacity of scarring or atelectasis in left lower lobe. Smoothly marginated noncalcified nodule measures 1.2 cm transverse in the medial left lower lobe. Residual contrast material is present within the nondilated colon. No interval development of bowel obstruction or pneumoperitoneum. Multiple diverticula of the colon. Multilevel degenerative arthropathy of the visualized spine. Intraspinous fusion device at L4-L5. IMPRESSION: 1. No interval development of bowel obstruction this patient with diverticulitis (and small perisigmoid abscess as seen on the abdomen CT of 07/11/2017). 2. 1.2 cm nodule within the medial left lower lobe; noncontrast chest CT follow-up is recommended.
--- NOTE | 2017-07-14 13:40 | PN- Gastroenterology ---
Assessment/Plan GI Assessment/Recommendations: ASSESSMENT: 1. Acute Diverticulitis, Complicated by Intramural Abscess 2. Diabetes Mellitus 3. HTN 4. Hyperlipidemia 5. Lung nodule identified incidentally on recent CT RECOMMENDATIONS: 1. IV antibiotics, now on Ceftriaxone and Flagyl 2. Can give clear liquid diet and advance to full liquid diet 3. Appreciate surgical consult 4. Patient will likely need at least 5 days IV antibiotics 5. CT of the Chest to further characterize lung nodule Subjective Subjective: Patient is doing quite well. No nausea, vomiting or abdominal pain. No fever or shaking chills. Objective Vital Signs and I&Os Vital Signs Date Time Temp Pulse Resp B/P B/P Pulse O2 O2 Flow FiO2 Mean Ox Delivery Rate 07/14 0734 56 07/14 0630 98.2 54 20 149/73 96 Room Air 07/13 2242 97.9 57 18 141/65 94 Room Air 07/13 1527 98.5 59 18 143/71 95 Room Air Intake & Output 07/14 1600 07/14 0400 07/13 1600 07/13 0400 07/12 1600 07/12 0400 Intake Total 130 130 815 0 Output Total Balance 130 130 815 0 Intake, IV 130 130 575 Intake, Oral 240 0 Number 0 Bowel Movements Patient 210 lb 210 lb Weight Weight Reported by Patient Reported by Patient Measurement Method Physical Exam General Appearance: alert, awake, comfortable Respiratory: normal breath sounds, lungs clear Cardiovascular: regular rate/rhythm Abdomen: normal bowel sounds, soft, non-tender Extremities: normal inspection Neurologic/Psychiatric: awake, alert, oriented x 3, normal mood/affect Skin: intact, normal color, warm/dry Current Medications: Current Medications Sig/Fidelina Start time Last Medication Dose Route Stop Time Status Admin Acetaminophen 650 MG Q6P PRN 07/13 1715 AC 07/14 PO 1010 Acetaminophen 1,000 MG BID PRN 07/13 0615 AC N/A 1 UNIT IV Albuterol Sulfate 2 PUF Q4P PRN 07/13 1030 AC INH Atorvastatin Calcium 20 MG 1700 07/13 1700 AC 07/13 PO 1725 Budesonide/ 2 PUF BID 07/13 0900 AC 07/14 Formoterol Fumarate INH 0747 Ceftriaxone Sodium 1,000 MG 0600 07/13 0600 AC 07/14 IV 0635 Heparin Sodium 5,000 UNIT Q8 07/13 0600 AC 07/14 (Porcine) SC 1300 Insulin Human Regular 0 Q6 07/13 0600 AC SC Levothyroxine Sodium 0.112 MG DAILY AC 07/13 0700 AC 07/14 PO 0635 Metronidazole 500 MG Q8 07/13 0600 AC 07/14 N/A 1 UNIT IV 1300 Sodium Chloride 1,000 ML Q13H 07/13 0200 DC 07/13 IV 07/13 1459 0219 Tramadol HCl 50 MG Q8 PRN 07/13 0615 AC PO Results Pertinent Lab Results: Laboratory Tests 07/14 07/13 0706 0134 Chemistry Sodium (137 - 145 mmol/L) 139 Potassium (3.5 - 5.1 mmol/L) 4.0 Chloride (98 - 107 mmol/L) 102 Carbon Dioxide (22 - 30 mmol/L) 27 Anion Gap (5 - 16) 11 BUN (7 - 17 mg/dL) 8 Creatinine (0.5 - 1.0 mg/dL) 0.8 Estimated GFR (>60 ml/min) > 60 BUN/Creatinine Ratio (7 - 25 %) 10.0 Hematology CBC w Diff NO MAN DIFF REQ WBC (4.8 - 10.8 /CUMM) 7.1 RBC (4.20 - 5.40 /CUMM) 3.97 L Hgb (12.0 - 16.0 G/DL) 11.4 L Hct (37 - 47 %) 34.5 L MCV (81.0 - 99.0 FL) 86.9 MCH (27.0 - 31.0 PG) 28.6 MCHC (33.0 - 37.0 G/DL) 32.9 L RDW (11.5 - 14.5 %) 14.1 Plt Count (130 - 400 /CUMM) 331 MPV (7.4 - 10.4 FL) 8.9 Gran % (42.2 - 75.2 %) 66.9 Lymphocytes % (20.5 - 51.1 %) 24.2 Monocytes % (1.7 - 9.3 %) 5.6 Eosinophils % (0 - 5 %) 2.4 Basophils % (0.0 - 2.0 %) 0.9 Absolute Granulocytes (1.4 - 6.5 /CUMM) 4.8 Absolute Lymphocytes (1.2 - 3.4 /CUMM) 1.7 Absolute Monocytes (0.10 - 0.60 /CUMM) 0.4 Absolute Eosinophils (0.0 - 0.7 /CUMM) 0.2 Absolute Basophils (0.0 - 0.2 /CUMM) 0.1 Urines Urinalysis MOD H Urine Color (YEL,AMB,STR) YEL Urine Clarity (CLEAR) CLEAR Urine pH (5.0 - 8.0) 6.0 Ur Specific [place] (1.001 - 1.035) 1.015 Urine Protein (NEG,<30 MG/DL) NEG Urine Ketones (NEG) NEG Urine Nitrite (NEG) NEG Urine Bilirubin (NEG) NEG Urine Urobilinogen (0.1 - 1.0 EU/dl) 0.2 Ur Leukocyte Esterase (NEG) SMALL H Ur Microscopic SEDIMENT EXAMINED Urine RBC (0 - 5 /HPF) 1-3 Urine WBC (0 - 2 /HPF) 5-10 H Ur Epithelial Cells (NONE,FEW) FEW Hyaline Casts (0/LPF) 1-3 H Granular Casts (NONE /LPF) 1-3 H Urine Hemoglobin (NEG) NEG Urine Glucose (N MG/DL) NEG 07/13 07/12 0048 2205 Chemistry Sodium (137 - 145 mmol/L) 132 L Potassium (3.5 - 5.1 mmol/L) 3.7 Chloride (98 - 107 mmol/L) 94 L Carbon Dioxide (22 - 30 mmol/L) 27 Anion Gap (5 - 16) 11 BUN (7 - 17 mg/dL) 16 Creatinine (0.5 - 1.0 mg/dL) 1.0 Estimated GFR (>60 ml/min) 54 L BUN/Creatinine Ratio (7 - 25 %) 16.0 Glucose (65 - 99 mg/dL) 143 H Hemoglobin A1c (4.2 - 5.8 %) 7.3 H Lactic Acid (0.7 - 2.1 mmol/L) Cancelled 0.9 Calcium (8.4 - 10.2 mg/dL) 8.8 Total Bilirubin (0.2 - 1.3 mg/dL) 0.3 AST (14 - 36 U/L) 21 ALT (9 - 52 U/L) 46 Alkaline Phosphatase (<127 U/L) 70 Troponin I (< 0.11 ng/ml) < 0.01 Total Protein (6.3 - 8.2 g/dL) 6.1 L Albumin (3.5 - 5.0 g/dL) 3.3 L Globulin (1.9 - 4.2 gm/dL) 2.8 Albumin/Globulin Ratio (1.1 - 2.2 %) 1.2 Amylase (30 - 110 U/L) 55 Lipase (23 - 300 U/L) 305 H Coagulation PT (9.4 - 12.5 SEC) 12.4 INR (0.90 - 1.19) 1.14 APTT (25 - 37 SEC) 26 Hematology CBC w Diff NO MAN DIFF REQ WBC (4.8 - 10.8 /CUMM) 11.9 H RBC (4.20 - 5.40 /CUMM) 3.86 L Hgb (12.0 - 16.0 G/DL) 11.2 L Hct (37 - 47 %) 33.9 L MCV (81.0 - 99.0 FL) 87.8 MCH (27.0 - 31.0 PG) 28.9 MCHC (33.0 - 37.0 G/DL) 32.9 L RDW (11.5 - 14.5 %) 13.8 Plt Count (130 - 400 /CUMM) 316 MPV (7.4 - 10.4 FL) 8.3 Gran % (42.2 - 75.2 %) 74.9 Lymphocytes % (20.5 - 51.1 %) 17.0 L Monocytes % (1.7 - 9.3 %) 5.9 Eosinophils % (0 - 5 %) 1.7 Basophils % (0.0 - 2.0 %) 0.5 Absolute Granulocytes (1.4 - 6.5 /CUMM) 8.9 H Absolute Lymphocytes (1.2 - 3.4 /CUMM) 2.0 Absolute Monocytes (0.10 - 0.60 /CUMM) 0.7 H Absolute Eosinophils (0.0 - 0.7 /CUMM) 0.2 Absolute Basophils (0.0 - 0.2 /CUMM) 0.1 Absolute Monocytes (0.10 - 0.60 /CUMM) 0.7 H Absolute Eosinophils (0.0 - 0.7 /CUMM) 0.2 Absolute Basophils (0.0 - 0.2 /CUMM) 0.1
[2017-07-14 14:18] VITALS: BP 155/73
--- NOTE | 2017-07-14 14:52 | PN- Housestaff ---
Cassy Sargent 07/14/17 1451: Subjective Follow-up For: -acute diverticultis Complaints: no complaints Subjective: Have seen and examined the patient today morning, she seems to be tolerating her cleared with that well, mild abdominal bloating present, however no abdominal pain, she does not have any new complaints, hasn't had any more diarrhea episode however has not had a bowel movement for last 2 days. We'll obtain X-ray abdomen to rule out any obstruction Review of Systems Constitutional: Reports: see HPI. Objective Last 24 Hrs of Vital Signs/I&O Vital Signs Date Time Temp Pulse Resp B/P B/P Pulse O2 O2 Flow FiO2 Mean Ox Delivery Rate 07/14 1418 98.3 56 20 155/73 95 Room Air 07/14 0734 56 07/14 0630 98.2 54 20 149/73 96 Room Air 07/13 2242 97.9 57 18 141/65 94 Room Air 07/13 1527 98.5 59 18 143/71 95 Room Air Intake & Output 07/14 1600 07/14 0800 07/14 0000 Intake Total 930 130 130 Output Total Balance 930 130 130 Intake, IV 130 130 130 Intake, Oral 800 Number 0 Bowel Movements Physical Exam General Appearance: Alert, Oriented X3, Cooperative Skin: No Rashes, No Breakdown HEENT: Atraumatic, PERRLA, EOMI Cardiovascular: Regular Rate, Normal S1, Normal S2, No Murmurs Lungs: Clear to Auscultation, Normal Air Movement Abdomen: Soft, No Tenderness, mild tenderness on cecelia palpation in lower abdomen Extremities: No Clubbing, No Cyanosis, No Edema, Normal Pulses Vascular: Normal Pulses Current Medications: Current Medications Sig/Fidelina Start time Last Medication Dose Route Stop Time Status Admin Acetaminophen 650 MG Q6P PRN 07/13 1715 AC 07/14 PO 1010 Acetaminophen 1,000 MG BID PRN 07/13 0615 AC N/A 1 UNIT IV Albuterol Sulfate 2 PUF Q4P PRN 07/13 1030 AC INH Atorvastatin Calcium 20 MG 1700 07/13 1700 AC 07/13 PO 1725 Budesonide/ 2 PUF BID 07/13 0900 AC 07/14 Formoterol Fumarate INH 0747 Ceftriaxone Sodium 1,000 MG 0600 07/13 0600 AC 07/14 IV 0635 Heparin Sodium 5,000 UNIT Q8 07/13 0600 AC 07/14 (Porcine) SC 1300 Insulin Human Regular 0 Q6 07/13 06 AC SC Levothyroxine Sodium 0.112 MG DAILY AC 07/13 0700 AC 07/14 PO 0635 Metronidazole 500 MG Q8 07/13 0600 AC 07/14 N/A 1 UNIT IV 1300 Sodium Chloride 1,000 ML Q13H 07/13 0200 DC 07/13 IV 07/13 1459 0219 Tramadol HCl 50 MG Q8 PRN 07/13 0615 AC PO Last 24 Hrs of Lab/Elroy Results Last 24 Hrs of Labs/Mics: Laboratory Tests 07/14/17 0706: Anion Gap 11, Estimated GFR > 60, BUN/Creatinine Ratio 10.0, CBC w Diff NO MAN DIFF REQ, RBC 3.97 L, MCV 86.9, MCH 28.6, MCHC 32.9 L, RDW 14.1, MPV 8.9, Gran % 66.9, Lymphocytes % 24.2, Monocytes % 5.6, Eosinophils % 2.4, Basophils % 0.9, Absolute Granulocytes 4.8, Absolute Lymphocytes 1.7, Absolute Monocytes 0.4, Absolute Eosinophils 0.2, Absolute Basophils 0.1 Lines/Diet/Fluids Restraints: none Assessment/Plan Assessment: Mr Prakash is a 77-year-old woman with came to the hospital for chief concern of worsening lower abdominal discomfort 2 weeks. PMHx of type 2 diabetes, hypertension, previous history of diverticulitis, irritable bowel syndrome, COPD/asthma, hypothyroidism, HLD, VIC on CPAP, uterine cancer status post radiation, She was recently seen by primary care provider and was prescribed antibiotics when she also had "vaginal pain", hematuria, and dysuria that started around the same time, and was treated w/ nitrofurantoin briefly with no resolution of symptoms. She had a several episodes of non bloody diarrhea, lower abdominal pain w/ no radiation or association w/ food intake. No melena, brpbr. She was then evaluated by a CT scan abdomen by her PCP which revealed s/o diverticulitis and was recommends to go to the ER. Last colonoscopy was done approximately 10 years ago. Etiology in her case of abdominal discomfort, with radiological findings of acute diverticulitis complicating into a diverticular abscess is likely from her previous history of diverticulitis and irritable bowel syndrome. Since the patient had these symptoms for a while, and was partially treated with antibiotics, likely developed into an abscess that should be drained if it worsens. In regards to her other medical problems such as diabetes, COPD should be monitored while she is in the hospital. Problem list alongwith Plan : #1 acute diverticulitis with diverticular abscess-Ct ax treatment with ceftriaxone and flagyl will repeat Ct on to look at progression of abscess, if worsen might need drainage. Surgical input appreciated.Gi Input appreciated. Monitor vitals closely. If she has any signs of worsening abdominal pain, examination suggestive of peritonitis certainly needs to be alerted immediately for surgical exploration. #2 history of type 2 diabetes-hold oral hypoglycemic drugs at this time. ct the patient on insulin sliding scale. Monitor blood glucose closely. #3 hypertension-continue to hold antihypertensives at this time. Intravenous fluids at 150 mL an hour.If BP high, restart antiHTN as needed. DVT prophylaxis-subcutaneous heparin GI prophylaxis-Protonix when necessary CODE STATUS-DNR/DNI Problem List: 1. Acute diverticulitis Pain Ratin Pain Location: lower abdomen Pain Goal: Remain pain free Pain Plan: current plan Tomorrow's Labs & Rationales: cbc, bep CharismaSenatripp 07/14/17 1637: Attending MD Review Statement Attending Statement Attending MD Statement: examined this patient, discuss w/resident/PA/SENIOR SUPPLY CHAIN ANALYST, agreed w/resident/PA/SENIOR SUPPLY CHAIN ANALYST, reviewed EMR data (avail), discussed with nursing, discussed with case mgmt Attending Assessment/Plan: acute diverticulitis with abscess- cont on iv abx and will f/u on repeat CT scan in 1-2 days. d/w pt the care plan. her abdominal pain is better.
--- NOTE | 2017-07-14 18:45 | Event Note ---
Event Note Event Note: YJOTI Hoffmann talked to Dr. Willy Palmer who recommended advancing diet to Full liquids. Patient's diet has been advanced to full liquids
[2017-07-14 22:37] VITALS: BP 166/69
[2017-07-15 06:58] VITALS: BP 174/80
[2017-07-15 08:00] VITALS: BP 162/78
--- NOTE | 2017-07-15 08:03 | PN- Housestaff ---
Cassy Sargent 07/15/17 0800: Subjective Follow-up For: -acute diverticulitis with intramural absess Complaints: no complaints Subjective: I have seen and examined the patient today morning, she seems to be doing well, tolerating a full liquid diet well, we'll touch base with surgery if he can further advance the diet. Review of Systems Constitutional: Reports: see HPI. Objective Last 24 Hrs of Vital Signs/I&O Vital Signs Date Time Temp Pulse Resp B/P B/P Pulse O2 O2 Flow FiO2 Mean Ox Delivery Rate 07/15 0658 98.2 60 20 174/80 97 Room Air 07/14 2237 97.5 60 20 166/69 97 Room Air 07/14 1418 98.3 56 20 155/73 95 Room Air Intake & Output 07/15 1600 07/15 0800 07/15 0000 Intake Total 130 130 Output Total Balance 130 130 Intake, IV 130 130 Physical Exam General Appearance: Alert, Oriented X3, Cooperative, No Acute Distress Cardiovascular: Regular Rate, Normal S1, Normal S2, No Murmurs Lungs: Clear to Auscultation, Normal Air Movement Abdomen: Normal Bowel Sounds, Soft, passing gas, mild tenderness on deep palpation in lower abdomen Extremities: No Clubbing, No Cyanosis, No Edema, Normal Pulses Vascular: Normal Pulses Current Medications: Current Medications Sig/Fidelina Start time Last Medication Dose Route Stop Time Status Admin Acetaminophen 650 MG .STK-MED ONE 07/14 2230 DC PO 07/14 2231 Acetaminophen 650 MG Q6P PRN 07/13 1715 AC 07/14 PO 2230 Acetaminophen 1,000 MG BID PRN 07/13 0615 AC N/A 1 UNIT IV Albuterol Sulfate 2 PUF Q4P PRN 07/13 1030 AC INH Atorvastatin Calcium 20 MG 1700 07/13 1700 AC 07/14 PO 1853 Budesonide/ 2 PUF BID 07/13 0900 AC 07/15 Formoterol Fumarate INH 0854 Ceftriaxone Sodium 1,000 MG 0600 07/13 06 AC 07/15 IV 0600 Heparin Sodium 5,000 UNIT Q8 07/13 06 AC 07/15 (Porcine) SC 1314 Insulin Human Regular 0 Q6 07/13 0600 AC SC Levothyroxine Sodium 0.112 MG DAILY AC 07/13 0700 AC 07/15 PO 0600 Metronidazole 500 MG Q8 07/13 0600 AC 07/15 N/A 1 UNIT IV 1312 Patient Medication 1 ED ONE ONE 07/15 1045 DC [facility] ED 07/15 1046 Patient Medication 1 ED ONE ONE 07/14 1830 DC 07/14 [facility] ED 07/14 1831 1853 Tramadol HCl 50 MG Q8 PRN 07/13 0615 AC PO Assessment/Plan Assessment: Mr Prakash is a 77-year-old woman with came to the hospital for chief concern of worsening lower abdominal discomfort 2 weeks. PMHx of type 2 diabetes, hypertension, previous history of diverticulitis, irritable bowel syndrome, COPD/asthma, hypothyroidism, HLD, VIC on CPAP, uterine cancer status post radiation, She was recently seen by primary care provider and was prescribed antibiotics when she also had "vaginal pain", hematuria, and dysuria that started around the same time, and was treated w/ nitrofurantoin briefly with no resolution of symptoms. She had a several episodes of non bloody diarrhea, lower abdominal pain w/ no radiation or association w/ food intake. No melena, brpbr. She was then evaluated by a CT scan abdomen by her PCP which revealed s/o diverticulitis and was recommends to go to the ER. Problem list alongwith Plan : #1 acute diverticulitis with diverticular abscess-Ct ax treatment with ceftriaxone and flagyl will repeat Ct tomorrow to look at progression of abscess, if worsen might need drainage.We will also advance her to regular diet today, surgery okay with advancing, as she has a BM today, is passing flatus.Surgical input appreciated.Gi Input appreciated. Monitor vitals closely. If she has any signs of worsening abdominal pain, examination suggestive of peritonitis certainly needs to be alerted immediately for surgical exploration. #2 history of type 2 diabetes-hold oral hypoglycemic drugs at this time. ct the patient on insulin sliding scale. Monitor blood glucose closely. #3 hypertension-continue to hold antihypertensives at this time. D/c Intravenous fluids once toerates PO.If BP high, restart antiHTN as needed. DVT prophylaxis-subcutaneous heparin GI prophylaxis-Protonix when necessary CODE STATUS-DNR/DNI Problem List: 1. Acute diverticulitis Pain Ratin Pain Location: right shoulder Pain Goal: Remain pain free Pain Plan: tramadol Tomorrow's Labs & Rationales: cbc, bep Zafar,Kanwardeep 05/30/18 1411: Attending MD Review Statement Attending Statement Attending MD Statement: examined this patient, discuss w/resident/PA/ELEMENTARY PRINCIPAL, agreed w/resident/PA/ELEMENTARY PRINCIPAL, reviewed EMR data (avail), discussed with nursing, discussed with case mgmt Attending Assessment/Plan: Acute diverticulitis with abscess- plan is to repeat CT abdoment tomorrow am and see if the abscess is resolving or not. Based on CT finding will make further management plan. If abscess is resolving will change to po abx and possible dc. d/w pt the care plan.
--- NOTE | 2017-07-15 08:04 | Discharge Summary ---
Visit Information Visit Dates Admission Date: 07/13/17 Hospital Course Course Attending Physician: Eliana Zafar MD Primary Care Physician: Baldemar Jacobson DO Consulting Request: Consulting Specialty: Critical Care Allergies: Coded Allergies: erythromycin base (GI UPSET 07/12/17) Discharge Instructions Medications at Discharge Discharge Medications: Continue taking these medications: Lisinopril/Hydrochlorothiazide (Lisinopril-Hctz 20-25 MG Tab) 20 MG-25 MG TABLET 1 Tablet ORAL DAILY Qty = 90 Comments: HCTZ GIVEN IN HOSPITAL Last Taken: 07/16/17 Time: 1120AM Fluticasone/Salmeterol (Advair 250-50 Diskus) 250 MCG-50 MCG/DOSE BLST.W.DEV 1 Puff Inhale through mouth TWICE DAILY Qty = 60 Comments: NOT GIVEN IN HOSPITAL Levothyroxine Sodium (Levothyroxine Sodium) 112 MCG TABLET 1 Tablet ORAL DAILY Qty = 90 Comments: Last Taken: 07/16/17 Time: 7AM Simvastatin (Simvastatin*) 40 MG TABLET 1 Tablet ORAL Every night Qty = 90 Metformin HCl (Metformin HCl ER) 500 MG TAB.ER.24H 1 Tablet ORAL TWICE DAILY Qty = 270 Comments: NOT GIVEN IN HOSPITAL Sitagliptin Phosphate (Januvia) 100 MG TABLET 1 Tablet ORAL DAILY Qty = 90 Start taking the following new medications: Ciprofloxacin HCl (Cipro) 500 MG TABLET 1 Tablet ORAL TWICE DAILY Qty = 30 No Refills Metronidazole (Flagyl) 500 MG TABLET 1 Tablet ORAL THREE TIMES DAILY Qty = 42 No Refills Lactobacillus Acidophilus (Acidophilus) 1 EACH CAPSULE 1 Capsule ORAL DAILY Qty = 60 No Refills
[2017-07-15 12:59] VITALS: BP 140/68
--- NOTE | 2017-07-15 14:52 | PN- Gastroenterology ---
Assessment/Plan GI Assessment/Recommendations: ASSESSMENT: 1. Acute Diverticulitis, Complicated by Intramural Abscess 2. Diabetes Mellitus 3. HTN 4. Hyperlipidemia 5. Lung nodule identified incidentally on recent CT RECOMMENDATIONS: 1. IV antibiotics, now on Ceftriaxone and Flagyl 2. Would not repeat CT abdomen and pelvis at this time as patient is clearly made significant clinical progress. 3. Would advance diet to soft diet 4. If patient remains afebrile and comfortable and tolerating diet would change to oral antibiotics tomorrow. Would give Cipro 500 twice a day and Flagyl 500 3 times a day. Patient remains afebrile and be discharged the next day. 5. Patient will need follow-up with me as an outpatient. CT will be done in 6- 8 weeks to document healing of abscess. 6. Colonoscopy will be done after CT Scan to make sure that there are no intercurrent lesions to account for abscess and inflammatory changes Subjective Subjective: Patient tolerating full liquid diet. Has no nausea vomiting abdominal pain. Had a small stool without blood. Objective Vital Signs and I&Os Vital Signs Date Time Temp Pulse Resp B/P B/P Pulse O2 O2 Flow FiO2 Mean Ox Delivery Rate 07/15 1259 98.0 62 16 140/68 96 Room Air 07/15 0800 60 162/78 07/15 0658 98.2 60 20 174/80 97 Room Air 07/14 2237 97.5 60 20 166/69 97 Room Air Intake & Output 07/15 1600 07/15 0400 07/14 1600 07/14 0400 07/13 1600 07/13 0400 Intake Total 9276 750 1553 130 815 0 Output Total Balance 9201 386 9971 130 815 0 Intake, IV 130 130 260 130 575 Intake, Oral 1000 800 240 0 Number 1 0 0 Bowel Movements Patient 210 lb 210 lb Weight Weight Reported by Patient Reported by Patient Measurement Method Physical Exam General Appearance: well developed/nourished, comfortable Respiratory: normal breath sounds, lungs clear Cardiovascular: regular rate/rhythm Abdomen: normal bowel sounds, soft, non-tender Neurologic/Psychiatric: no motor/sensory deficits, oriented x 3 Current Medications: Current Medications Sig/Fidelina Start time Last Medication Dose Route Stop Time Status Admin Acetaminophen 650 MG .STK-MED ONE 07/14 2229 DC PO 07/14 2230 Acetaminophen 650 MG Q6P PRN 07/13 1715 AC 07/14 PO 2230 Acetaminophen 1,000 MG BID PRN 07/13 0615 AC N/A 1 UNIT IV Albuterol Sulfate 2 PUF Q4P PRN 07/13 1030 AC INH Atorvastatin Calcium 20 MG 1700 07/13 1700 AC 07/14 PO 1853 Budesonide/ 2 PUF BID 07/13 0900 AC 07/15 Formoterol Fumarate INH 0854 Ceftriaxone Sodium 1,000 MG 0600 07/13 0600 AC 07/15 IV 0600 Heparin Sodium 5,000 UNIT Q8 07/13 0600 AC 07/15 (Porcine) SC 1314 Insulin Human Regular 0 Q6 07/13 0600 AC SC Levothyroxine Sodium 0.112 MG DAILY AC 07/13 0700 AC 07/15 PO 0600 Metronidazole 500 MG Q8 07/13 0600 AC 07/15 N/A 1 UNIT IV 1312 Patient Medication 1 ED ONE ONE 07/15 1045 DC Teaching ED 07/15 1046 Patient Medication 1 ED ONE ONE 07/14 1830 DC 07/14 Teaching ED 07/14 1831 1853 Tramadol HCl 50 MG Q8 PRN 07/13 0615 AC PO Results Pertinent Lab Results: Laboratory Tests 07/14 07/13 0706 0134 Chemistry Sodium (137 - 145 mmol/L) 139 Potassium (3.5 - 5.1 mmol/L) 4.0 Chloride (98 - 107 mmol/L) 102 Carbon Dioxide (22 - 30 mmol/L) 27 Anion Gap (5 - 16) 11 BUN (7 - 17 mg/dL) 8 Creatinine (0.5 - 1.0 mg/dL) 0.8 Estimated GFR (>60 ml/min) > 60 BUN/Creatinine Ratio (7 - 25 %) 10.0 Hematology CBC w Diff NO MAN DIFF REQ WBC (4.8 - 10.8 /CUMM) 7.1 RBC (4.20 - 5.40 /CUMM) 3.97 L Hgb (12.0 - 16.0 G/DL) 11.4 L Hct (37 - 47 %) 34.5 L MCV (81.0 - 99.0 FL) 86.9 MCH (27.0 - 31.0 PG) 28.6 MCHC (33.0 - 37.0 G/DL) 32.9 L RDW (11.5 - 14.5 %) 14.1 Plt Count (130 - 400 /CUMM) 331 MPV (7.4 - 10.4 FL) 8.9 Gran % (42.2 - 75.2 %) 66.9 Lymphocytes % (20.5 - 51.1 %) 24.2 Monocytes % (1.7 - 9.3 %) 5.6 Eosinophils % (0 - 5 %) 2.4 Basophils % (0.0 - 2.0 %) 0.9 Absolute Granulocytes (1.4 - 6.5 /CUMM) 4.8 Absolute Lymphocytes (1.2 - 3.4 /CUMM) 1.7 Absolute Monocytes (0.10 - 0.60 /CUMM) 0.4 Absolute Eosinophils (0.0 - 0.7 /CUMM) 0.2 Absolute Basophils (0.0 - 0.2 /CUMM) 0.1 Urines Urinalysis MOD H Urine Color (YEL,AMB,STR) YEL Urine Clarity (CLEAR) CLEAR Urine pH (5.0 - 8.0) 6.0 Ur Specific [place] (1.001 - 1.035) 1.015 Urine Protein (NEG,<30 MG/DL) NEG Urine Ketones (NEG) NEG Urine Nitrite (NEG) NEG Urine Bilirubin (NEG) NEG Urine Urobilinogen (0.1 - 1.0 EU/dl) 0.2 Ur Leukocyte Esterase (NEG) SMALL H Ur Microscopic SEDIMENT EXAMINED Urine RBC (0 - 5 /HPF) 1-3 Urine WBC (0 - 2 /HPF) 5-10 H Ur Epithelial Cells (NONE,FEW) FEW Hyaline Casts (0/LPF) 1-3 H Granular Casts (NONE /LPF) 1-3 H Urine Hemoglobin (NEG) NEG Urine Glucose (N MG/DL) NEG 07/13 07/12 0048 2205 Chemistry Sodium (137 - 145 mmol/L) 132 L Potassium (3.5 - 5.1 mmol/L) 3.7 Chloride (98 - 107 mmol/L) 94 L Carbon Dioxide (22 - 30 mmol/L) 27 Anion Gap (5 - 16) 11 BUN (7 - 17 mg/dL) 16 Creatinine (0.5 - 1.0 mg/dL) 1.0 Estimated GFR (>60 ml/min) 54 L BUN/Creatinine Ratio (7 - 25 %) 16.0 Glucose (65 - 99 mg/dL) 143 H Hemoglobin A1c (4.2 - 5.8 %) 7.3 H Lactic Acid (0.7 - 2.1 mmol/L) Cancelled 0.9 Calcium (8.4 - 10.2 mg/dL) 8.8 Total Bilirubin (0.2 - 1.3 mg/dL) 0.3 AST (14 - 36 U/L) 21 ALT (9 - 52 U/L) 46 Alkaline Phosphatase (<127 U/L) 70 Troponin I (< 0.11 ng/ml) < 0.01 Total Protein (6.3 - 8.2 g/dL) 6.1 L Albumin (3.5 - 5.0 g/dL) 3.3 L Globulin (1.9 - 4.2 gm/dL) 2.8 Albumin/Globulin Ratio (1.1 - 2.2 %) 1.2 Amylase (30 - 110 U/L) 55 Lipase (23 - 300 U/L) 305 H Coagulation PT (9.4 - 12.5 SEC) 12.4 INR (0.90 - 1.19) 1.14 APTT (25 - 37 SEC) 26 Hematology CBC w Diff NO MAN DIFF REQ WBC (4.8 - 10.8 /CUMM) 11.9 H RBC (4.20 - 5.40 /CUMM) 3.86 L Hgb (12.0 - 16.0 G/DL) 11.2 L Hct (37 - 47 %) 33.9 L MCV (81.0 - 99.0 FL) 87.8 MCH (27.0 - 31.0 PG) 28.9 MCHC (33.0 - 37.0 G/DL) 32.9 L RDW (11.5 - 14.5 %) 13.8 Plt Count (130 - 400 /CUMM) 316 MPV (7.4 - 10.4 FL) 8.3 Gran % (42.2 - 75.2 %) 74.9 Lymphocytes % (20.5 - 51.1 %) 17.0 L Monocytes % (1.7 - 9.3 %) 5.9 Eosinophils % (0 - 5 %) 1.7 Basophils % (0.0 - 2.0 %) 0.5 Absolute Granulocytes (1.4 - 6.5 /CUMM) 8.9 H Absolute Lymphocytes (1.2 - 3.4 /CUMM) 2.0 Absolute Monocytes (0.10 - 0.60 /CUMM) 0.7 H Absolute Eosinophils (0.0 - 0.7 /CUMM) 0.2 Absolute Basophils (0.0 - 0.2 /CUMM) 0.1
[2017-07-15 22:05] VITALS: BP 144/52
--- NOTE | 2017-07-16 07:29 | PN- Housestaff ---
DelmisjackPhamzaira 07/16/17 0728: Subjective Follow-up For: acute diverticulitis with intramural absess Review of Systems Constitutional: Reports: see HPI. Objective Last 24 Hrs of Vital Signs/I&O Vital Signs Date Time Temp Pulse Resp B/P B/P Pulse O2 O2 Flow FiO2 Mean Ox Delivery Rate 07/15 2205 98.4 64 20 144/52 96 Room Air 07/15 1259 98.0 62 16 140/68 96 Room Air 07/15 0800 60 162/78 Intake & Output 07/16 0800 07/16 0000 07/15 1600 Intake Total 1000 Output Total Balance 1000 Intake, Oral 1000 Number 5 1 Bowel Movements Physical Exam General Appearance: Alert, Oriented X3 Skin: No Rashes, No Breakdown, No Significant Lesion Cardiovascular: Regular Rate, Normal S1, Normal S2, No Murmurs Lungs: Clear to Auscultation, Normal Air Movement Abdomen: Soft, No Tenderness Extremities: No Clubbing, No Cyanosis, No Edema, Normal Pulses Vascular: Normal Pulses Current Medications: .. Last 24 Hrs of Lab/Elroy Results Last 24 Hrs of Labs/Mics: .. Assessment/Plan Assessment: Mr Prakash is a 77-year-old woman with came to the hospital for chief concern of worsening lower abdominal discomfort 2 weeks. PMHx of type 2 diabetes, hypertension, previous history of diverticulitis, irritable bowel syndrome, COPD/asthma, hypothyroidism, HDL, VIC on CPAP, uterine cancer status post radiation, She was recently seen by primary care provider and was prescribed antibiotics when she also had "vaginal pain", hematuria, and dysuria that started around the same time, and was treated w/ nitrofurantoin briefly with no resolution of symptoms. She had a several episodes of non bloody diarrhea, lower abdominal pain w/ no radiation or association w/ food intake. No melena, brpbr. She was then evaluated by a CT scan abdomen by her PCP which revealed s/o diverticulitis and was recommends to go to the ER. Problem list Plan : #1 acute diverticulitis with diverticular abscess-.We will also advance her to regular diet today, surgery okay with advancing, as she has a BM today, is passing flatus.Surgical input appreciated.Gi Input appreciated.We will change to po Cipro and Flagyl today,with plan for CT abdomen and pelvis in 6 to 8 weeks from now.Rechecked labs today, they are stable,outpatient follow up with GI.Eventually plan for Colonoscopy after CT Scan to make sure that there are no intercurrent lesions to account for abscess and inflammatory changes.Probiotics added and will prescribe upon discharge. #2 history of type 2 diabetes-hold oral hypoglycemic drugs at this time. ct the patient on insulin sliding scale. Monitor blood glucose closely. #3 hypertension-continue to hold antihypertensives at this time. D/c Intravenous fluids once tolerates PO.If BP high, restart antiHTN as needed, upon d/c will ct. DVT prophylaxis-subcutaneous heparin GI prophylaxis-Protonix when necessary CODE STATUS-DNR/DNI Problem List: 1. Acute diverticulitis Pain Ratin Pain Location: .. Pain Goal: Remain pain free (.) Pain Plan: .. Tomorrow's Labs & Rationales: .. Consulting Request: Consulting Specialty: Critical Care Eliana Zafar 07/16/17 1532: Attending MD Review Statement Attending Statement Attending MD Statement: examined this patient, discuss w/resident/PA/DOUBLE END CHUCKING MACHINE OPERATOR, agreed w/resident/PA/DOUBLE END CHUCKING MACHINE OPERATOR, reviewed EMR data (avail), discussed with nursing, discussed with case mgmt Attending Assessment/Plan: Acute diverticulitis with abscess- Pt being dced home on po cipro and flagyl. GI thinks repeating CT would not help at this point of time and would repeat CT In few weeks after she f/u with GI clinic as an outpatinet.
[2017-07-16 07:34] VITALS: BP 189/71
[2017-07-16 09:40] VITALS: BP 152/70
[2017-07-16] MEDS ORDERED: ACIDOPHILUS1 EACH PO (10:01)
[2017-07-16] MEDS ORDERED: CIPRO500 M1 PO (10:01)
[2017-07-16] MEDS ORDERED: FLAGYL500 MG PO (10:01)
--- NOTE | 2017-07-16 10:04 | Patient Discharge Instructions ---
Discharge Instructions General Discharge Information You were seen/treated for: Actue diverticulitis Special Instructions: please follow up with your PCP and GI doctor within one to two weeks of discharge. please continue to take your antibiotics as prescribed. please continue to eat soft diet for few days, continue to take probiotics as prescribed. You will need a repeat ct scan in 6 to 8 weeks, please follow up with [facility] stomach doctor, Dr aguilera's contact information is provided to you. Diet Continue normal diet: No Recommended Diet: soft diet Acute Coronary Syndrome Inclusion Criteria At DC or during hospital stay patient has or had the following: ACS DIAGNOSIS No Discharge Core Measures Meds if any: Prescribed or Continued at Discharge Meds if any: NOT Prescribed or Continued at Discharge Congestive Heart Failure Inclusion Criteria At DC or during hospital stay patient has or had the following: CHF DIAGNOSIS No Discharge Core Measures Meds if any: Prescribed or Continued at Discharge Meds if any: NOT Prescribed or Continued at Discharge Cerebrovascular accident Inclusion Criteria At DC or during hospital stay patient has or had the following: CVA/TIA Diagnosis No Discharge Core Measures Meds if any: Prescribed or Continued at Discharge Meds if any: NOT Prescribed or Continued at Discharge Venous thromboembolism Inclusion Criteria VTE Diagnosis No VTE Type NONE VTE Confirmed by (Test) NONE Discharge Core Measures - Per Current guidelines, there needs to be overlap - treatment for the first 5 days of Warfarin therapy. - If discharged on Warfarin prior to 5 days of - overlap therapy, the patient will need to be - assessed for post discharge needs including - *Post discharge parental anticoagulation - *Warfarin and/or parental anticoagulation education - *Follow up date to check INR post discharge At least 5 days overlap therapy as Inpatient No Meds if any: Prescribed or Continued at Discharge Note: Overlap Therapy is Warfarin and Anticoagulant Meds if any: NOT Prescribed or Continued at Discharge
--- NOTE | 2017-07-16 10:39 | PN- Gastroenterology ---
Assessment/Plan GI Assessment/Recommendations: ASSESSMENT: 1. Acute Diverticulitis, Complicated by Intramural Abscess 2. Diabetes Mellitus 3. HTN 4. Hyperlipidemia 5. Lung nodule identified incidentally on recent CT RECOMMENDATIONS: 1. Oral Antibiotics to be started this morning 2. No CT abdomen and pelvis at this time as patient has clearly made significant clinical progress. 3. Would repeat CMP, CBC and stool for C. Diff prior to d/c. Patient has not had labs since 07/14. 4. If patient remains afebrile and comfortable and tolerating diet can be discharged today. 5. Patient will need follow-up with me as an outpatient. Make sure patient gets my office address and telephone number. CT will be done in 6-8 weeks to document healing of abscess. 6. Colonoscopy will be done after CT Scan to make sure that there are no intercurrent lesions to account for abscess and inflammatory changes 7. Patient to be started on probiotics for antibiotic associated diarrhea Subjective Subjective: Patient doing well. Tolerating Diet. No nausea, vomtiing or abdominal pain. Doing much better. Patient is having loose stools which she always has when she takes antibiotics. A stool for C. Diff was ordered last night results are not back as yet. Objective Vital Signs and I&Os Vital Signs Date Time Temp Pulse Resp B/P B/P Pulse O2 O2 Flow FiO2 Mean Ox Delivery Rate 07/16 0940 152/70 07/16 0734 98.6 56 20 189/71 96 Room Air 07/15 2205 98.4 64 20 144/52 96 Room Air 07/15 1259 98.0 62 16 140/68 96 Room Air Intake & Output 07/16 1600 07/16 0400 07/15 1600 07/15 0400 07/14 1600 07/14 0400 Intake Total 7809 801 2997 130 Output Total Balance 4422 362 3951 130 Intake, IV 130 130 260 130 Intake, Oral 1000 800 Number 2 5 1 0 Bowel Movements Physical Exam General Appearance: no apparent distress, comfortable Respiratory: normal breath sounds, lungs clear Cardiovascular: regular rate/rhythm, Normal S1 and S2 without rub, murmur or gallop Abdomen: normal bowel sounds, soft, non-tender, no organomegaly Neurologic/Psychiatric: alert, oriented x 3 Current Medications: Current Medications Sig/Fidelina Start time Last Medication Dose Route Stop Time Status Admin Acetaminophen 650 MG .STK-MED ONE 07/15 1757 DC PO 05/30 1759 Acetaminophen 650 MG Q6P PRN 07/13 1715 AC 07/16 PO 0943 Acetaminophen 1,000 MG BID PRN 07/13 0615 AC N/A 1 UNIT IV Albuterol Sulfate 2 PUF Q4P PRN 07/13 1030 AC INH Atorvastatin Calcium 20 MG 1700 07/13 1700 AC 07/15 PO 1815 Budesonide/ 2 PUF BID 07/13 0900 AC 07/16 Formoterol Fumarate INH 0925 Ceftriaxone Sodium 1,000 MG 0600 07/13 0600 DC 07/16 IV 0654 Ciprofloxacin 500 MG BID 07/16 1000 AC PO 07/20 0959 Heparin Sodium 5,000 UNIT Q8 07/13 0600 AC 07/16 (Porcine) SC 0654 Hydrochlorothiazide 25 MG DAILY 07/16 1000 AC PO Insulin Aspart 0 TIDAC 07/16 0800 AC SC Insulin Human Regular 0 Q6 07/13 0600 DC SC Lactobacillus 1 CAP DAILY 07/16 1000 AC Acidophilus PO Levothyroxine Sodium 0.112 MG DAILY AC 07/13 0700 AC 07/16 PO 0653 Metronidazole 500 MG TID 07/16 1400 AC PO Metronidazole 500 MG Q8 07/13 0600 DC 07/16 N/A 1 UNIT IV 0654 Patient Medication 1 ED ONE ONE 07/15 1045 DC Teaching ED 07/15 1046 Tramadol HCl 50 MG Q8 PRN 07/13 0615 AC PO Results Pertinent Lab Results: Laboratory Tests 07/14 0706 Chemistry Sodium (137 - 145 mmol/L) 139 Potassium (3.5 - 5.1 mmol/L) 4.0 Chloride (98 - 107 mmol/L) 102 Carbon Dioxide (22 - 30 mmol/L) 27 Anion Gap (5 - 16) 11 BUN (7 - 17 mg/dL) 8 Creatinine (0.5 - 1.0 mg/dL) 0.8 Estimated GFR (>60 ml/min) > 60 BUN/Creatinine Ratio (7 - 25 %) 10.0 Hematology CBC w Diff NO MAN DIFF REQ WBC (4.8 - 10.8 /CUMM) 7.1 RBC (4.20 - 5.40 /CUMM) 3.97 L Hgb (12.0 - 16.0 G/DL) 11.4 L Hct (37 - 47 %) 34.5 L MCV (81.0 - 99.0 FL) 86.9 MCH (27.0 - 31.0 PG) 28.6 MCHC (33.0 - 37.0 G/DL) 32.9 L RDW (11.5 - 14.5 %) 14.1 Plt Count (130 - 400 /CUMM) 331 MPV (7.4 - 10.4 FL) 8.9 Gran % (42.2 - 75.2 %) 66.9 Lymphocytes % (20.5 - 51.1 %) 24.2 Monocytes % (1.7 - 9.3 %) 5.6 Eosinophils % (0 - 5 %) 2.4 Basophils % (0.0 - 2.0 %) 0.9 Absolute Granulocytes (1.4 - 6.5 /CUMM) 4.8 Absolute Lymphocytes (1.2 - 3.4 /CUMM) 1.7 Absolute Monocytes (0.10 - 0.60 /CUMM) 0.4 Absolute Eosinophils (0.0 - 0.7 /CUMM) 0.2 Absolute Basophils (0.0 - 0.2 /CUMM) 0.1
[2017-07-16 11:17] LABS: ABSOLUTE BASOPHIL COUNT 0.6 /CUMM (0.0-0.2); ABSOLUTE EOSINOPHIL COUNT 0.1 /CUMM (0.0-0.7); ABSOLUTE GRANULOCYTE CT 5.8 /CUMM (1.4-6.5); ABSOLUTE LYMPH COUNT 1.4 /CUMM (1.2-3.4); ABSOLUTE MONOCYTE COUNT 0.4 /CUMM (0.10-0.60); BASOPHIL % 7.5 % (0.0-2.0); EOSINOPHIL % 1.8 % (0-5); GRANULOCYTE % 69.6 % (42.2-75.2); HEMATOCRIT 33.7 % (37-47); MEAN CORPUSCULAR HGB 29.2 PG (27.0-31.0); MEAN CORPUSCULAR HGB CONC 33.5 G/DL (33.0-37.0); MEAN CORPUSCULAR VOLUME 87.3 FL (81.0-99.0); PLATELET COUNT 311 /CUMM (130-400); RBC DISTRIBUTION WIDTH 13.8 % (11.5-14.5); RED BLOOD CELL CT 3.86 /CUMM (4.20-5.40); WHITE BLOOD CELL COUNT 8.3 /CUMM (4.8-10.8)
--- NOTE | 2017-07-16 12:00 | PN- General Surgery ---
Surgical Brief Attending Note Brief Attending Note: As per previous notes, and based upon clinical improvement, there is no need for acute surgical intervention at this time. GI has recommended a follow up scan as an outpatient in 6-8 weeks. Surgery agrees and pt can be discharged without reimaging while in hospital. This was discussed with Dr. Jacobo.
[2017-07-16 13:38] VITALS: BP 150/72
== END 2017-07-16 14:00 | DRG 392 ==
LOC: ERH 20:06 → ERHI 07-13 02:26 → 2NB 07-13 02:26 → ENRESERV 07-13 03:48 → 2NB 07-13 04:28 → ENPENDDIS 07-16 13:49 → ENTRNSPT 07-16 13:57 → 2NB 07-16 14:00 → EDTRNSPTSTS 07-16 14:06 → CMPTRNSPT 07-16 14:09
PROVIDERS: Internal Medicine; Internal Medicine Endocrinology, Diabetes & Metabolism; Pediatrics
DX: K57.20 Diverticulitis of large intestine with perforation and abscess without bleeding (principal); I10 Essential (primary) hypertension; J44.9 Chronic obstructive pulmonary disease, unspecified; G47.33 Obstructive sleep apnea (adult) (pediatric); E03.9 Hypothyroidism, unspecified; Z79.84 Long term (current) use of oral hypoglycemic drugs; R91.8 Other nonspecific abnormal finding of lung field; Z85.42 Personal history of malignant neoplasm of other parts of uterus; E11.40 Type 2 diabetes mellitus with diabetic neuropathy, unspecified; E78.5 Hyperlipidemia, unspecified; Z90.710 Acquired absence of both cervix and uterus; Z88.1 Allergy status to other antibiotic agents; R91.1 Solitary pulmonary nodule; Z66 Do not resuscitate
CPT/HCPCS: 2NBSP; 36592; 74018; 81001; 82436; 87015; 87040; 87045; 87086; 87899; 87899-59; 93005; 93010; J0696; J1644; J2405; J3490